=== PATIENT | male | born 1990 | race Caucasian/White ===

== ENCOUNTER 2017-12-07 22:54 | Emergency (ER) | payer OTHER, SELFPAY ==
[2017-12-08 00:18] LABS: ABG BASE EXCESS -1.6 (-2.0-2.0); ABG HCO3 22.4 MEQ/L (22.0-26.0); ABG O2 SATURATION 97.7 % (95.0-99.0); ABG PARTIAL PRESSURE CO2 36.2 mmHg (35.0-45.0); ABG PARTIAL PRESSURE O2 95.1 mmHg (75.0-100.0); ABG STANDARD HCO3 23.2 MEQ/L (22.0-26.0); ABG TOTAL CO2 23.5 MEQ/L (22.0-29.0)
[2017-12-08] MEDS: methylPREDNISolone INJ 125 MG/2 ML VIAL (J2930) IM (00:45)
== END 2017-12-08 01:04 | disposition home or self-care (01) ==
LOC: M ED 22:54
DX: J20.9 Acute bronchitis, unspecified (principal); F17.200 Nicotine dependence, unspecified, uncomplicated; F41.9 Anxiety disorder, unspecified; Z88.5 Allergy status to narcotic agent; Z88.8 Allergy status to other drugs, medicaments and biological substances
CPT/HCPCS: J2930

== ENCOUNTER 2018-08-10 20:53 | Emergency (ER) | payer MEDICAID, OTHER, SELFPAY ==
[~2018-08-10] VITALS: Ht 165.1 cm; Wt 90.0 kg
[~2018-08-10 20:53] MED LIST: CELE20TA PO; No Home Meds; PRED20TA PO; TRAZ-160 PO
[2018-08-10 20:56] VITALS: BP 131/70
[2018-08-10] MEDS ORDERED: ADACEL/BOOSTRIX VACCINE (DIPHTH/PERTUSS/ACELL/TETANUS)0.5ML SYR (90715) IM ONE (21:30)
--- NOTE | 2018-08-11 08:11 | REP ---
Left hand four views: There is subtle soft tissue injury of the thumb. There are tiny foreign bodies at the location of the soft tissue injury. There is are tiny metallic densities accompanied by soft tissue injury in t of the index finger lateral to the proximal phalange head. There is a metallic foreign body lateral to the base of the middle finger proximal phalange. No fracture or dislocation are identified. Impression: Soft tissue injury is not foreign bodies as described. No fracture or dislocation. Electronically Signed by Raymond Lovelace MD 08/11/2018 08:02 A
== END 2018-08-10 22:20 | disposition left against medical advice (07) ==
LOC: M ED 20:53
DX: Z53.21 Procedure and treatment not carried out due to patient leaving prior to being seen by health care provider (principal)

== ENCOUNTER 2018-08-11 05:16 | Emergency (ER) | payer SELFPAY ==
[~2018-08-11] VITALS: Ht 162.6 cm; Wt 86.4 kg
[2018-08-11] MEDS ORDERED: LIDOCAINE 1% SDV INJ 30 ML VIAL SC SCH (05:30)
[2018-08-11] MEDS ORDERED: LIDOCAINE 1% MDV 20ML VIAL SC ONE (05:30)
[2018-08-11] MEDS ORDERED: TETANUS/DIPHTHERIA TOX ADSORB ADULT 0.5ML SYR/VIAL (90714) IM ONE (05:30)
[2018-08-11] MEDS ORDERED: LIDOCAINE 1% MDV 20ML VIAL As Ordered ONE (05:35)
[2018-08-11 06:53] VITALS: BP 127/71
--- NOTE | 2018-08-11 07:39 | REP ---
Right shoulder three views : There is no fracture or dislocation. Mineralization and joint spaces are normal. There are no calcifications or foreign bodies. Impression: Negative right shoulder . Electronically Signed by Raymond Lovelace MD 08/11/2018 07:30 A
== END 2018-08-11 06:57 | disposition home or self-care (01) ==
LOC: M ED 05:16
DX: S61.012A Laceration without foreign body of left thumb without damage to nail, initial encounter (principal); S61.211A Laceration without foreign body of left index finger without damage to nail, initial encounter; S46.811A Strain of other muscles, fascia and tendons at shoulder and upper arm level, right arm, initial encounter; X50.1XXA Overexertion from prolonged static or awkward postures, initial encounter; Y92.89 Other specified places as the place of occurrence of the external cause; Y99.0 Civilian activity done for income or pay

== ENCOUNTER 2018-10-06 07:26 | Emergency (ER) | payer OTHER, SELFPAY ==
[~2018-10-06] VITALS: Ht 162.6 cm; Wt 86.4 kg
--- NOTE | 2018-10-06 08:18 | REP ---
Right shoulder three views : There is no fracture or dislocation. Mineralization and joint spaces are normal. There are no calcifications or foreign bodies. Impression: Negative right shoulder . Electronically Signed by Raymond Lovelace MD 10/06/2018 08:08 A
[2018-10-06] MEDS ORDERED: DICL75TA PO ×2 (08:26→08:50)
[2018-10-06 08:28] VITALS: BP 130/91
== END 2018-10-06 08:40 | disposition home or self-care (01) ==
LOC: M ED 07:26
DX: S46.001A Unspecified injury of muscle(s) and tendon(s) of the rotator cuff of right shoulder, initial encounter (principal); X50.0XXA Overexertion from strenuous movement or load, initial encounter; Y92.89 Other specified places as the place of occurrence of the external cause; Y99.0 Civilian activity done for income or pay; Z87.891 Personal history of nicotine dependence

== ENCOUNTER 2018-10-08 12:54 | Emergency (ER) | payer OTHER ==
[~2018-10-08] VITALS: Ht 162.6 cm; Wt 86.4 kg
[~2018-10-08 12:54] MED LIST changes: +DICL75TA PO
[2018-10-08 13:01] VITALS: BP 157/88
[2018-10-08] MEDS ORDERED: PERC5TAB12 PO (13:19)
== END 2018-10-08 13:29 | disposition home or self-care (01) ==
LOC: M ED 12:54
DX: M75.101 Unspecified rotator cuff tear or rupture of right shoulder, not specified as traumatic (principal); Z88.8 Allergy status to other drugs, medicaments and biological substances

== ENCOUNTER 2019-01-14 10:08 | Emergency (ER) | payer OTHER ==
[~2019-01-14] VITALS: Ht 162.6 cm; Wt 97.7 kg
[~2019-01-14 10:08] MED LIST changes: +PERC5TAB12 PO; -TRAZ-160 PO; +TRAZ-252 PO
[2019-01-14] MEDS ORDERED: TIZA4TAB4 (10:17)
[2019-01-14] MEDS ORDERED: ACET1TAB16 (10:17)
--- NOTE | 2019-01-14 13:22 | REP ---
CT study of the cervical spine without contrast: History: Neck pain and back pain. Comparison CT study is from July 03, 2015. Technique: Helical scanning is acquired and overlapping 2 mm high resolution axial images were generated and reviewed at bone and soft tissue window settings. Coronal and sagittal multiplanar re-formations images are generated. CT findings: There is no evidence of cervical spine element fracture. No skull base fracture is seen. Cervical vertebral body heights are preserved. Alignment is normal. There is some straightening again noted unchanged. Facet joints are normally aligned bilaterally at each cervical level on multiplanar re-formations images. There is no evidence of intraspinal or paraspinal hematoma. No extra vertebral abnormality is seen. Impression: Straightening again noted. Otherwise negative CT study of the cervical spine without contrast. No fracture seen. No change from July 03, 2015. Electronically Signed by Anthony Roy MD 01/14/2019 01:13 P
--- NOTE | 2019-01-14 13:42 | REP ---
Thoracic spine three views: There are no comparisons. Vertebral body heights, interspacing alignment are normal. Pedicles are unremarkable. Mineralization is normal. Impression: Negative thoracic spine. Electronically Signed by Raymond Lovelace MD 01/14/2019 01:34 P
[2019-01-14 13:53] VITALS: BP 155/80
== END 2019-01-14 13:56 | disposition home or self-care (01) ==
LOC: M ED 10:08
DX: M54.2 Cervicalgia (principal); M75.101 Unspecified rotator cuff tear or rupture of right shoulder, not specified as traumatic; G89.29 Other chronic pain; M79.621 Pain in right upper arm; Z79.899 Other long term (current) drug therapy; Z88.6 Allergy status to analgesic agent; Z88.5 Allergy status to narcotic agent

== ENCOUNTER 2020-09-01 21:50 | Emergency (ER) | payer OTHER, SELFPAY ==
[~2020-09-01] VITALS: Ht 162.6 cm; Wt 95.1 kg
[~2020-09-01 21:50] MED LIST changes: +ACET1TAB16; +TIZA4TAB4
[2020-09-01 21:51] VITALS: BP 154/72
== END 2020-09-01 23:25 | disposition left against medical advice (07) ==
LOC: M ED 21:50
DX: Z53.21 Procedure and treatment not carried out due to patient leaving prior to being seen by health care provider (principal)

== ENCOUNTER 2021-03-11 10:10 | Emergency (ER) | payer OTHER, SELFPAY ==
[~2021-03-11] VITALS: Ht 162.6 cm; Wt 95.0 kg
[2021-03-11 11:47] LABS: BASO # 0.1 10^3/uL (0.0-0.2); BASO % 0.9 % (0.0-1.0); EOS # 0.4 10^3/uL (0.0-0.5); HEMATOCRIT 49.8 % (42.0-52.0); HEMOGLOBIN 17.6 g/dl (13.5-17.5); LYMPH # 1.6 10^3/uL (1.5-5.0); LYMPH % 21.1 % (24.0-44.0); MEAN CORPUSCULAR HEMOGLOBIN 32.1 pg (27.0-33.0); MEAN CORPUSCULAR HGB CONC 35.3 g/dl (32.0-36.5); MEAN CORPUSCULAR VOLUME 90.7 fl (80.0-96.0); MONO # 0.5 10^3/uL (0.0-0.8); MONO % 6.2 % (2.0-8.0); NEUTROPHILS # 4.9 10^3/uL (1.5-8.5); NEUTROPHILS % 66.3 % (36.0-66.0); PLATELET COUNT, AUTOMATED 235 10^3/uL (150-450); RED BLOOD COUNT 5.49 10^6/uL (4.30-6.10); WHITE BLOOD COUNT 7.4 10^3/uL (4.0-10.0)
--- NOTE | 2021-03-11 12:05 | REP ---
INDICATION: dysphagia, voice changes, swallows chew. COMPARISON: CT cervical spine 01/14/2019. TECHNIQUE: CT soft tissues neck performed without IV contrast. Sagittal and coronal reconstruction images are performed. FINDINGS: The airway is widely patent with no narrowing or foreign body. The epiglottis is normal in size. The aryepiglottic folds are not thickened. The parotid and submandibular glands are symmetrical in appearance. There is no gross nodule of the thyroid. Thyroid is normal in size. No adenopathy is appreciated. There is mild mucosal thickening in the ethmoid, maxillary and left sphenoid sinuses. The visualized osseous structures are intact. IMPRESSION: Mild diffuse mucosal thickening in the paranasal sinuses. No gross airway abnormality. <Electronically signed by Raymond Serrano > 03/11/21 1203
[2021-03-11 12:07] LABS: MONO REFLEX EBV COMP NEGATIVE (NEGATIVE)
[2021-03-11 12:08] LABS: ERYTHROCYTE SEDIMENTATION RATE 1 mm/hr (0-15)
[2021-03-11 12:11] LABS: C REACTIVE PROTEIN QUANTITATIV < 0.30 MG/DL (0.00-0.30)
[2021-03-11] MEDS ORDERED: MAGIC MOUTHWASH *ED ONLY* 5ML ORAL SYRINGE SS ONE (12:15)
[2021-03-11] MEDS ORDERED: KETOROLAC 30 MG/ML 1ML VIAL IV ONE (12:15)
[2021-03-11] MEDS ORDERED: MAGICMW SSP (13:25)
[2021-03-11 13:32] VITALS: BP 139/98
[2021-03-14 15:12] LABS: EBV VIRAL CAPSID AG IgG >600.0 U/mL (0.0-17.9); EBV VIRAL CAPSID AG IgM <36.0 U/mL (0.0-35.9)
== END 2021-03-11 13:45 | disposition home or self-care (01) ==
LOC: M ED 10:10
DX: J02.9 Acute pharyngitis, unspecified (principal); F17.220 Nicotine dependence, chewing tobacco, uncomplicated; Z88.8 Allergy status to other drugs, medicaments and biological substances
CPT/HCPCS: 36415; 70490; 80047; 85025; 85652; 86140; 86308; 86664; 86665; 96374; 99284; J1885

== ENCOUNTER 2021-04-20 12:37 | Emergency (ER) | payer OTHER ==
[~2021-04-20] VITALS: Ht 172.7 cm; Wt 95.5 kg
[~2021-04-20 12:37] MED LIST changes: +MAGICMW SSP
[2021-04-20 12:38] VITALS: BP 136/88
--- OUTSIDE RECORDS SUMMARY | 2021-04-20 13:08 | CCD | Continuity of Care Document ---
Author Author Alex BANUELOS [facility] Organization Unknown Address [address] [place] [address] Phone [phone] Problems Description No Information Available Social History Type Date Description Comments Sex Unknown Tobacco Use Start: Unknown Current Smokeless Tobacco User, Uses 5 Times Daily ETOH Use Consumes 1-2 beers per day Recreational Drug Use Never Used Drugs Tobacco Use Start: Unknown End: Unknown Patient is a former smoker quit 2016 Smoking Status Reviewed: 02/13/21 Patient is a former smoker qu it 2016 Exercise Type/Frequency Exercises regularly Tattoo/Piercing Tattoo Sun Exposure Moderate amount of sun exposure Seat Belt/Car Seat Always uses seat belt Bike Helmet Never Smoke Alarms Yes Smoke Alarms Carbon Monoxide Detector: Yes Allergies, Adverse Reactions, Alerts Active Allergies Reaction Severity Comments Date Tramadol 02/26/2019 Naproxen 02/26/2019 Medications Description No Active Medications Immunizations CPT Code Status Date Vaccine Lot # [id number] Given 08/11/2018 Td Preservative Free For Use In Individuals 7 Yrs Or Older Vital Signs Date Vital Result Comment 02/13/2021 4:18pm BP Systolic 131 mmHg BP Diastolic 83 mmHg Heart Rate 92 /min Body Temperature 97.3 F Respiratory Rate 16 /min Height 64 inches 5'4" Weight 202.12 lb O2 % BldC Oximetry 96 % Peak Expiratory Flow Rate 491 Estimated Peak Flow Rate [place] Body Weight 130 lb BMI (Body Mass Index) 34.7 kg/m2 09/07/2019 11:20am BP Systolic 114 mmHg BP Diastolic 76 mmHg Heart Rate 66 /min Body Temperature 98.1 F Respiratory Rate 14 /min Height 64.0 inches 5'4" Weight 213.38 lb Peak Expiratory Flow Rate 495 Estimated Peak Flow Rate [place] Body Weight 130 lb BMI (Body Mass Index) 36.6 kg/m2 Results Description No Information Available Procedures Date Code Description Status 02/13/2021 12953 Preventive Medicine 18-39 Years, Est. Completed Medical Devices Description No Information Available Encounters Type Date Location Provider Dx Diagnosis Office Visit 02/13/2021 4:15p Main Office Maegan Banuelos FNP Z00.0 0 Encntr for general adult medical exam w/o abnormal findings H91.93 Unspecified hearing loss, bi lateral Assessments Date Code Description Provider 02/13/2021 Z00.00 Encounter for genera l adult medical examination without abnormal findings Maegan Banuelos FNP 02/13/2021 H91.93 Unspecified hearing loss, bilate ral Maegan Banuelos FNP Plan of Treatment 02/13/2021 - Maegan Banuelos FNP* Z00.00 Encounter for general adult medical examination without abnormal findings* Comments:* Health maintenance up to date. Overall doing well. SLADE/PHQ 9/CAGE questionnaire reviewed. Discussed healthy lifestyle choices. * Follow up:* annually * H91.93 Unspecified hearing loss, bilateral* Comments:* refer to audiology * All * New Medication:* No Active Medications - Functional Status Functional Condition Comment Date Status Independent with all ADL's Activ e Glasses Active Independent with all IADL's Acti ve Mental Status Mental Condition Comment Date Status None Active Referrals Description No Information Available
--- OUTSIDE RECORDS SUMMARY | 2021-04-20 13:08 | CCD | Continuity of Care Document ---
Author Author Alex BANUELOS [facility] Organization Unknown Address [address] [place] [address] Phone [phone] Problems Description No Information Available Social History [...] CPT Code Status Date Vaccine Lot # [id number] Given 08/11/2018 Td Preservative Free For Use In Individuals 7 Yrs Or Older Vital Signs Date Vital Result Comment 02/13/2021 4:18pm BP Systolic 131 mmHg BP Diastolic 83 mmHg Heart Rate 92 /min Body Temperature 97.3 F Respiratory Rate 16 /min Height 64 inches 5'4" Weight 202.12 lb O2 % BldC Oximetry 96 % Peak Expiratory Flow Rate 491 Estimated Peak Flow Rate [place] Body Weight 130 lb BMI (Body Mass Index) 34.7 kg/m2 09/07/2019 11:20am BP Systolic 114 mmHg BP Diastolic 76 mmHg Heart Rate 66 /min Body Temperature 98.1 F Respiratory Rate 14 /min Height 64.0 inches 5'4" Weight 213.38 lb Peak Expiratory Flow Rate 495 Estimated Peak Flow Rate [place] Body Weight 130 lb BMI (Body Mass Index) 36.6 kg/m2 Results Description No Information Available Procedures Date Code Description Status 02/13/2021 50175 Preventive Medicine 18-39 Years, Est. Completed Medical [...]
--- OUTSIDE RECORDS SUMMARY | 2021-04-20 13:08 | CCD | Continuity of Care Document ---
Author Author Alex BANUELOS [facility] Organization Unknown Address [address] [place] [address] Phone [phone] Care Team Providers Care People Greeter Name Role Phone [facility] - [facility] [phone] [facility] Problems Description No Information Available Social History Type Date Description Comments Sex Unknown Tobacco Use Start: Unknown Current Smokeless Tobacco User, Uses 5 Times Daily ETOH Use Consumes 1-2 beers per day Recreational Drug Use Never Used Drugs Tobacco Use Start: Unknown End: Unknown Patient is a former smoker quit 2016 Smoking Status Reviewed: 03/15/21 Patient is a former smoker qu it 2017 Exercise Type/Frequency Exercises regularly Tattoo/Piercing Tattoo Sun Exposure Moderate amount of sun exposure Seat Belt/Car Seat Always uses seat belt Bike Helmet Never Smoke Alarms Yes Smoke Alarms Carbon Monoxide Detector: Yes Allergies, Adverse Reactions, Alerts Active Allergies Criticality Reaction | Severity Comments Date Tramadol Unable to assess criticality 02/26/2019 Naproxen Unable to assess criticality 02/26/2019 Medications Active Medications SIG Qnty Indications Ordering Provide r Date Cefdinir 300mg Capsules 1 by mouth twice a day 20caps J02.9 Maegan Banuelos FNP 03/15/2021 History Medications No Active Medications Bhupinder Banuelos FNP 02/13/2021 - 03/15/2021 Immunizations CPT Code Status Date Vaccine Lot # [id number] Given 08/11/2018 Td Preservative Free For Use In Individuals 7 Yrs Or Older Vital Signs Date Vital Result Comment 03/15/2021 2:24pm BP Systolic 130 mmHg BP Diastolic 89 mmHg Heart Rate 76 /min Body Temperature 97.8 F Respiratory Rate 16 /min Height 64 inches 5'4" Weight 211.31 lb O2 % BldC Oximetry 98 % Peak Expiratory Flow Rate 491 Estimated Peak Flow Rate [place] Body Weight 130 lb BMI (Body Mass Index) 36.3 kg/m2 02/13/2021 4:18pm BP Systolic 131 mmHg BP Diastolic 83 mmHg Heart Rate 92 /min Body Temperature 97.3 F Respiratory Rate 16 /min Height 64 inches 5'4" Weight 202.12 lb O2 % BldC Oximetry 96 % Peak Expiratory Flow Rate 491 Estimated Peak Flow Rate [place] Body Weight 130 lb BMI (Body Mass Index) 34.7 kg/m2 Results Description No Information Available Procedures Date Code Description Status 03/15/2021 98312 Office/Outpatient Established Lo w MDM 20-29 Min Completed 02/13/2021 43522 Preventive Medicine 18-39 Years, Est. Completed Medical Devices Description No Information Available Encounters Type Date Location Provider Dx Diagnosis Office Visit 03/15/2021 2:45p Main Office Maegan Banuelos FNP J02.9 Acute pharyngitis, unspecified Office Visit 02/13/2021 4:15p Main Office Maegan Banuelos FNP Z00.0 0 Encntr for general adult medical exam w/o abnormal findings H91.93 Unspecified hearing loss, bi lateral Assessments Date Code Description Provider 03/15/2021 J02.9 Acute pharyngitis, unspecified P Maegan roach FNP 02/13/2021 Z00.00 Encounter for genera l adult medical examination without abnormal findings Maegan Banuelos FNP 02/13/2021 H91.93 Unspecified hearing loss, bilate ral Maegan Banuelos FNP Plan of Treatment 03/15/2021 - Maegan Banuelos FNP* J02.9 Acute pharyngitis, unspecified* New Medication:* Cefdinir 300 mg - 1 by mouth twice a day * Comments:* likely an infectious process but will also refer to ENT for evaluation per patient's request and risk factors including family history and use of chewing tobacco * Referral:* [facility] * Recommendations:* rest, increase fluids, warm salt water gargle, Tylenol for discomfort, throat lozenges Functional Status Functional Condition Comment Date Status Independent with all ADL's Activ e Glasses Active Independent with all IADL's Acti ve Mental Status Mental Condition Comment Date Status None Active Referrals Refer to Reason for Referral Status Appt Date [facility] Please evaluate patient for continued sore throats, family hx of throat cancer, chewing tobacco use. Thank you. Sent [address] [facility], [address] [facility] [phone] [facility] Please evaluate for bilateral hearing lo ss. Thank you. Scheduled 03/20/2021 [address] [place] [address] [phone]
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
--- OUTSIDE RECORDS SUMMARY | 2021-04-20 15:02 | CCD | Continuity of Care Document ---
Author Author [facility] Organization Unknown Address [address] [place] [address] Phone [phone] Care Team Providers Care Sales Expert Name Role Phone [facility] - Hearing Aid Equipment AUTM [phone] Problems Description No Information Available Social History [...] CPT Code Status Date Vaccine Lot # [id number] Given 08/11/2018 Td Preservative Free For Use In Individuals 7 Yrs Or Older Vital Signs Date Vital Result Comment 03/15/2021 2:24pm BP Systolic 130 mmHg BP Diastolic 89 mmHg Heart Rate 76 /min Body Temperature 97.8 F Respiratory Rate 16 /min Height 64 inches 5'4" Weight 211.31 lb O2 % BldC Oximetry 98 % Peak Expiratory Flow Rate 491 Estimated Peak Flow Rate [place] Body Weight 130 lb BMI (Body Mass Index) 36.3 kg/m2 02/13/2021 4:18pm BP Systolic 131 mmHg BP Diastolic 83 mmHg Heart Rate 92 /min Body Temperature 97.3 F Respiratory Rate 16 /min Height 64 inches 5'4" Weight 202.12 lb O2 % BldC Oximetry 96 % Peak Expiratory Flow Rate 491 Estimated Peak Flow Rate [place] Body Weight 130 lb BMI (Body Mass Index) 34.7 kg/m2 Results Description No Information Available Procedures Date Code Description Status 02/13/2021 00491 Preventive Medicine 18-39 Years, Est. Completed Medical [...] by mouth twice a day * Comments:* will also refer to ENT for evaluation per patient's request * Recommendations:* rest, increase fluids, warm salt water gargle, Tylenol for discomfort, throat lozenges Functional Status Functional Condition Comment Date Status Independent with all ADL's Activ e Glasses Active Independent with all IADL's Acti ve Mental Status Mental Condition Comment Date Status None Active Referrals Refer to Reason for Referral Status Appt Date [facility] Please evaluate for bilateral hearing lo ss. Thank you. Scheduled 03/20/2021 [id number] [place] [id number] [phone]
== END 2021-04-20 15:12 | disposition left against medical advice (07) ==
LOC: M ED 12:37
DX: Z53.21 Procedure and treatment not carried out due to patient leaving prior to being seen by health care provider (principal)

== ENCOUNTER 2021-04-21 08:08 | Inpatient (IN) | payer OTHER ==
[~2021-04-21] VITALS: Ht 162.6 cm; Wt 91.0 kg
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
[2021-04-21] MEDS ORDERED: methylPREDNISolone 125MG 2ML VIAL IV ONE (09:00)
[2021-04-21] MEDS ORDERED: ACETAMINOPHEN *IV* 1,000 MG in IV 1 EA IV ONE (09:05)
[2021-04-21] MEDS ORDERED: NS 1,000 ML IV ONE (09:05)
[2021-04-21 09:40] LABS: BASO # 0.1 10^3/uL (0.0-0.2); BASO % 0.7 % (0.0-1.0); EOS # 0.6 10^3/uL (0.0-0.5); EOS % 5.4 % (0.0-3.0); HEMATOCRIT 49.3 % (42.0-52.0); LYMPH # 1.6 10^3/uL (1.5-5.0); LYMPH % 14.7 % (24.0-44.0); MEAN CORPUSCULAR HEMOGLOBIN 31.7 pg (27.0-33.0); MEAN CORPUSCULAR HGB CONC 34.5 g/dl (32.0-36.5); MEAN CORPUSCULAR VOLUME 91.8 fl (80.0-96.0); MONO # 0.7 10^3/uL (0.0-0.8); MONO % 6.6 % (2.0-8.0); NEUTROPHILS # 7.7 10^3/uL (1.5-8.5); NEUTROPHILS % 72.2 % (36.0-66.0); PLATELET COUNT, AUTOMATED 243 10^3/uL (150-450); RED BLOOD COUNT 5.37 10^6/uL (4.30-6.10); WHITE BLOOD COUNT 10.7 10^3/uL (4.0-10.0)
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
[2021-04-21 10:05] LABS: ALT/SGPT 98 U/L (12-78); BILIRUBIN,DIRECT 0.2 MG/DL (0.0-0.2); C REACTIVE PROTEIN QUANTITATIV 1.41 MG/DL (0.00-0.30); LIPASE 68 U/L (73-393); TOTAL PROTEIN 7.1 GM/DL (6.4-8.2)
[2021-04-21 10:06] LABS: MONO SCRN NEGATIVE (NEGATIVE)
[2021-04-21 10:37] LABS: ERYTHROCYTE SEDIMENTATION RATE 1 mm/hr (0-15)
[2021-04-21] MEDS ORDERED: ISOVUE-370 76% 100ML VIAL As Ordered ONE (11:36)
--- NOTE | 2021-04-21 12:07 | REPVR ---
PROCEDURE INFORMATION: Exam: CT Neck With Contrast Exam date and time: 04/21/2021 11:47 AM Age: 31 years old Clinical indication: Dysphagia / difficulty swallowing; Prior surgery; Additional info: Dyphagia TECHNIQUE: Imaging protocol: Computed tomography images of the neck with contrast. Radiation optimization: All CT scans at this facility use at least one of these dose optimization techniques: automated exposure control; mA and/or kV adjustment per patient size (includes targeted exams where dose is matched to clinical indication); or iterative reconstruction. Contrast material: ISOVUE 370; Contrast volume: 75 ml; Contrast route: INTRAVENOUS (IV); COMPARISON: CT Neck without contrast 03/11/2021 11:04 AM FINDINGS: Brain: Mild mass effect upon the airway from the right mucosal lesion. Mastoid air cells: The mastoids are well aerated. Paranasal sinuses: Paranasal sinus disease most pronounced in the ethmoids as before. No air-fluid levels. Nasopharynx: Unremarkable. Dental: There is a carious right mandibular molar. No significant periapical lucencies in the maxilla or mandible. No cortical destruction here. Oropharynx: Increasing soft tissue prominence of the lingual tonsil and parapharyngeal space on the right. I believe there is a developing peritonsillar abscess measuring 18 x 11 mm. Hypopharynx: Unremarkable. Larynx: The epiglottis is sharp. Soft tissue edema is seen extending to the region of the tongue base and floor of mouth on the right. Additional hypodense lesion could be present in the intrinsic tongue on axial series 201, image 39 measuring 16 x 9 mm. This could be due 2nd developing collection. Retropharyngeal space: Unremarkable. Submandibular/Parotid glands: Normal. Glands are normal in size. Thyroid: Homogeneous thyroid. Lymph nodes: Small neck nodes are likely reactive right greater than left. . Trachea: Visualized trachea is unremarkable. Lungs: Grossly clear lungs. Esophagus: Mildly patulous esophagus. Bones/joints: No acute fracture. Loss of the lordosis suggests spasm. Vasculature: No venous thrombus. No significant carotid vascular calcifications. Soft tissues: No subcutaneous lesions. IMPRESSION: 1. Findings worrisome for developing peritonsillar abscess on the right with mild mass effect upon the airway. 2. Question new hypodense lesion in the intrinsic tongue on the right with artifact from adjacent dental hardware. 3. Dental disease. 4. No confluent lymphadenopathy. Electronically signed by: Cali Augustine On 04/21/2021 12:07:46 PM
[2021-04-21] MEDS ORDERED: AMPICILLIN SOD/SULBACTAM SOD 3 GM in D5W MINI-BAG PLUS 100 ML IV ONE (12:25)
[2021-04-21 12:35] LABS: RSV AMPLIFICATION NEGATIVE (NEGATIVE)
[2021-04-21] MEDS ORDERED: MORPHINE 4 MG/ML 1ML VIAL/SYRINGE (J2270) IV ONE (13:00)
[2021-04-21] MEDS ORDERED: ONDANSETRON 4MG/2ML VIAL IV ONE (13:00)
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
[2021-04-21] MEDS ORDERED: ACETAMINOPHEN TAB 650MG DOSE (2X325MG) PO PRN (14:25)
[2021-04-21] MEDS ORDERED: ONDANSETRON 4MG/2ML VIAL IV PRN (14:25)
[2021-04-21] MEDS ORDERED: CHLORASEPTIC SPRAY MT PRN (14:25)
[2021-04-21] MEDS ORDERED: HOME MED LIST COMPLETE! XX SCH (14:45)
[2021-04-21] MEDS ORDERED: LORazepam 2 MG TAB PO PRN (15:20)
--- NOTE | 2021-04-21 15:27 | HPEPDOC ---
General Date of Admission Apr 21, 2021 at 13:45 Date of Service: Apr 21, 2021 Chief Complaint The patient is a 31-year-old male admitted with a reason for visit of Peritonsillar Abscess, Uvulitis. History of Present Illness Mr. Hernandez is a 29-year-old male with history of smoking who presents with throat pain with difficulty swallowing solids. He denies any sick contacts, recent travel, or recent hospitalizations. The sore throat started about 3 weeks ago. He describes the pain as annoying and throbbing. It progressively gotten worse the past 3 weeks. This morning he woke up and he cannot swallow solid. He can swallow a little of liquids. He denies any fever or chills, chest pain, dyspnea, abdominal pain, diarrhea, or dysuria. He came into the ED for evaluation. His uvula was swollen and was taken to the right side of his throat. CT neck with contrast demonstrates developing peritonsillar abscess on the right. There is mild mass-effect upon the airway. ED provider contacted ENT, Dr. Carey. Recommended IV antibiotics and monitor the patient overnight. If his symptoms improved tomorrow, he would not need surgery. His symptoms worsen or stays the same, he may need surgery. He will be put on a clear liquid diet and switch to n.p.o. at midnight. Patient will be admitted for peritonsillar abscess. Home Medications No Active Prescriptions or Reported Meds Allergies Coded Allergies: naproxen (Verified Allergy, Unknown, 10/06/18) tramadol (Verified Adverse Reaction, Unknown, VOMITS, 10/06/18) Past Medical History Medical History 1. Nicotine use disorder 2. Alcohol use disorder Surgical History 1. Tonsillectomy and adenoidectomy 2. Left rotator cuff and biceps repair Family History Father: History of throat cancer and kidney cancer Mother: Does not know mother's past medical history Social History * Smoker: former Smoker, other (Now chews tobacco) Alcohol: occationally (About a 6 pack a day) Drugs: marijuana A-FIB/CHADSVASC A-FIB History Current/History of A-Fib/PAF?: No Review of Systems Constitutional: Denies: Chills, Fever Eyes: Denies: Vision change ENT: Reports: Sore Throat, Other Symptoms (trouble swallowing solids) Skin: Denies: Rash Pulmonary: Denies: Dyspnea, Cough Cardiovascular: Denies: Chest Pain Gastrointestinal: Denies: Abdominal Pain Genitourinary: Denies: Dysuria Hematologic: Denies: Bruising Neurological: Denies: Numbness Psych: Denies: Anxiety, Depression Physical Examination General Exam: Positive: Alert, Cooperative Eye Exam: Positive: EOMI; Negative: Sclera icteric ENT Exam: Positive: Other ENT (Uvula swelling and touching right side) Chest Exam: Positive: Clear to auscultation Heart Exam: Positive: Rate Normal, Regular Rhythm Abdomen Exam: Positive: Normal bowel sounds, Soft; Negative: Tenderness Extremity Exam: Negative: Edema Neuro Exam: Positive: Normal Speech, Cranial Nerves 3-12 NL Psych Exam: Positive: Mental status NL, Mood NL Vital Signs Vital Signs Date Time Temp Pulse Resp B/P (MAP) Pulse Ox O2 Delivery O2 Flow Rate FiO2 04/21/21 14:08 18 04/21/21 14:07 97.2 78 95 04/21/21 08:09 Room Air Laboratory Data Labs 24H Laboratory Tests 2 04/21/21 08:52: POC Group A Strep Rapid Screen NEGATIVE 04/21/21 09:27: Immature Granulocyte % (Auto) 0.4, Neutrophils (%) (Auto) 72.2H, Lymphocytes (%) (Auto) 14.7L, Monocytes (%) (Auto) 6.6, Eosinophils (%) (Auto) 5.4H, Basophils (%) (Auto) 0.7, Neutrophils # (Auto) 7.7, Lymphocytes # (Auto) 1.6, Monocytes # (Auto) 0.7, Eosinophils # (Auto) 0.6H, Basophils # (Auto) 0.1, Nucleated Red Blood Cells % (auto) 0.0, Erythrocyte Sedimentation Rate 1, Total Bilirubin 1.0, Direct Bilirubin 0.2, Aspartate Amino Transf (AST/SGOT) 30, Alanine Aminotransferase (ALT/SGPT) 98H, Alkaline Phosphatase 77, C-Reactive Protein, Quantitative 1.41H, Total Protein 7.1, Albumin 4.0, Albumin/Globulin Ratio 1.3, Lipase 68L, Monoscreen NEGATIVE 04/21/21 09:46: POC Glucose (Misc Panel) 109H, POC Sodium (Misc Panel) 141, POC Potassium (Misc Panel) 4.1, POC Chloride (Misc Panel) 103, POC Total CO2 (Misc Panel) 24.0, POC Blood Urea Nitrogen (Misc Panel 11, POC Ionized Calcium (Misc Panel) 4.6, POC Creatinine (Misc Panel) 0.8, POC Hematocrit (Misc Panel) 50.0 04/21/21 11:29: Coronavirus (COVID-19)(PCR) NEGATIVE, Influenza Type A (RT-PCR) NEGATIVE, Influenza Type B (RT-PCR) NEGATIVE, Respiratory Syncytial Virus (PCR) NEGATIVE CBC/BMP Laboratory Tests 04/21/21 09:27 Microbiology Microbiology 04/21/21 Group A Streptococcus Screen (GALDINO), Received Pending Assessment/Plan Mr. Hernandez is a 29-year-old male with history of smoking who presents with throat pain with difficulty swallowing solids. He was found to have right peritonsillar abscess and uveitis. ENT consulted. Recommending IV antibiotics and monitoring overnight. If patient does not improve, can consider surgery. We will keep patient on clear liquid diet and switch to n.p.o. after midnight. Plan / VTE VTE Prophylaxis Ordered?: Yes Plan Plan 1. Peritonsillar abscess and uveitis Rapid strep negative and mono screen negative ENT consulted, recommendations appreciated IV Unasyn day 1 Clear liquid diet now and n.p.o. after midnight If no improvement tomorrow morning, can consider surgery 2. Alcohol use disorder Patient drinks about a sixpack a beer a day CIWA protocol Thiamine, folic acid, and multivitamin 3. Tobacco use disorder Patient recently quit smoking and now is chewing tobacco/nicotine 4. DVT prophylaxis Due to planned procedure, SCDs and teds Disposition: Pending clinical improvement and ENT evaluation TERENCE ROMAN DO Apr 21, 2021 14:49
--- NOTE | 2021-04-21 15:34 | CR.PDOC ---
General Date of Consultation: Apr 21, 2021 Referring Provider: TERENCE ROMAN DO Attending Physician: Leonard Carey MD Consultation REASON FOR CONSULTATION/CHIEF COMPLAINT: Right cellulitis versus abscess . HISTORY OF PRESENT ILLNESS: Alex is a 31-year-old gentleman who was complained of a 2-week history of progressive right sore throat. 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 He woke this morning and felt like his throat was closing off. He came to the ER. He has been afebrile swallowing has been sore but he is able to take p.o. Lab tests showed white count of 10. CT scan was done that showed cellulitis versus early abscess right peritonsillar area. ALLERGIES: Please see below. HOME MEDICATIONS: Please see below. PAST MEDICAL HISTORY: 1. None. PAST SURGICAL HISTORY: 1. 2. FAMILY HISTORY: Father: Mother: Siblings: Children: Hereditary Diseases: Unexpected deaths due to medical reasons: SOCIAL HISTORY: Marital status and/or living arrangements: Children: Employment: Tobacco use: ETOH: Illicit drug use: IV drug use: Other relevant social factors: REVIEW OF SYSTEMS: CONSTITUTIONAL: . HEENT: . CARDIOVASCULAR: . RESPIRATORY: . GENITOURINARY: . MUSCULOSKELETAL: . GASTROINTESTINAL: . SKIN: . NEUROLOGICAL: . PSYCHIATRIC: . ENDOCRINE: . HEMATOLOGIC/LYMPHATIC: . ALLERGIC/IMMUNOLOGIC: . PHYSICAL EXAMINATION: VITAL SIGNS: Please see below. GENERAL APPEARANCE: He was alert and oriented in no obvious distress.. HEENT: Examination of face and scalp was within normal limits. Examination the ears were clear examination external nose was normal intraoral examination revealed normal floor mouth tongue and posterior pharyngeal wall. There was erythema over the right tonsil pillar tonsil was 2+. There was a mucous retention cyst on his tonsil. Left side was clear palpation of the neck revealed some tender adenopathy in the right jugulodigastric area otherwise clear.. RESPIRATORY: . CARDIOVASCULAR: . ABDOMEN: . EXTREMITIES: . NEUROLOGICAL: . PSYCHIATRIC: . LABORATORY DATA: Please see below. ASSESSMENT/PLAN: 1. I think he has a peritonsillar cellulitis which will most likely be treated adequately with IV antibiotics. We recommended Unasyn. He has had some steroids in the ER and is already feeling a little bit better. I will follow him through the weekend to ensure that he continues to improve. Out of an ab undance of caution we will have him stay n.p.o. after midnight and we can evaluate this in the morning.. Vital Signs/I&O Vital Signs Date Time Temp Pulse Resp B/P (MAP) Pulse Ox O2 Delivery O2 Flow Rate FiO2 04/21/21 14:28 04/21/21 14:08 18 04/21/21 14:07 97.2 78 95 04/21/21 08:09 Room Air Laboratory Data Labs 24H Laboratory Tests 2 04/21/21 08:52: POC Group A Strep Rapid Screen NEGATIVE 04/21/21 09:27: Immature Granulocyte % (Auto) 0.4, Neutrophils (%) (Auto) 72.2H, Lymphocytes (%) (Auto) 14.7L, Monocytes (%) (Auto) 6.6, Eosinophils (%) (Auto) 5.4H, Basophils (%) (Auto) 0.7, Neutrophils # (Auto) 7.7, Lymphocytes # (Auto) 1.6, Monocytes # (Auto) 0.7, Eosinophils # (Auto) 0.6H, Basophils # (Auto) 0.1, Nucleated Red Blood Cells % (auto) 0.0, Erythrocyte Sedimentation Rate 1, Total Bilirubin 1.0, Direct Bilirubin 0.2, Aspartate Amino Transf (AST/SGOT) 30, Alanine Aminotransferase (ALT/SGPT) 98H, Alkaline Phosphatase 77, C-Reactive Protein, Quantitative 1.41H, Total Protein 7.1, Albumin 4.0, Albumin/Globulin Ratio 1.3, Lipase 68L, Monoscreen NEGATIVE 04/21/21 09:46: POC Glucose (Misc Panel) 109H, POC Sodium (Misc Panel) 141, POC Potassium (Misc Panel) 4.1, POC Chloride (Misc Panel) 103, POC Total CO2 (Misc Panel) 24.0, POC Blood Urea Nitrogen (Misc Panel 11, POC Ionized Calcium (Misc Panel) 4.6, POC Creatinine (Misc Panel) 0.8, POC Hematocrit (Misc Panel) 50.0 04/21/21 11:29: Coronavirus (COVID-19)(PCR) NEGATIVE, Influenza Type A (RT-PCR) NEGATIVE, Influenza Type B (RT-PCR) NEGATIVE, Respiratory Syncytial Virus (PCR) NEGATIVE CBC/BMP Laboratory Tests 04/21/21 09:27 Microbiology Microbiology 04/21/21 Group A Streptococcus Screen (GALDINO), Received Pending Allergies Coded Allergies: naproxen (Verified Allergy, Unknown, 10/06/18) tramadol (Verified Adverse Reaction, Unknown, VOMITS, 10/06/18) Home Medications No Active Prescriptions or Reported Meds Leonard Carey MD Apr 21, 2021 15:34
[2021-04-21 16:00] VITALS: BP 122/72
[2021-04-21] MEDS: PERCOCET 5MG/325MG TAB PO PRN (16:34)
[2021-04-21] MEDS: AMPICILLIN SOD/SULBACTAM SOD 3 GM in D5W MINI-BAG PLUS 100 ML IV SCH ×2 (18:57→23:21)
[2021-04-21 19:54] VITALS: BP 104/53
[2021-04-21] MEDS: THIAMINE 100 MG TAB PO SCH (20:23)
[2021-04-21] MEDS: MORPHINE 2 MG/ML 1ML VIAL (J2270) IV PRN (20:24)
[2021-04-21 23:00] VITALS: BP 105/52
[2021-04-22] MEDS: AMPICILLIN SOD/SULBACTAM SOD 3 GM in D5W MINI-BAG PLUS 100 ML IV SCH ×3 (05:55→17:33)
[2021-04-22] MEDS: PERCOCET 5MG/325MG TAB PO PRN ×2 (05:56→20:10)
[2021-04-22 06:00] VITALS: BP 102/56
[2021-04-22 06:31] LABS: HEMATOCRIT 46.1 % (42.0-52.0); MEAN CORPUSCULAR HEMOGLOBIN 31.7 pg (27.0-33.0); MEAN CORPUSCULAR HGB CONC 34.7 g/dl (32.0-36.5); MEAN CORPUSCULAR VOLUME 91.3 fl (80.0-96.0); PLATELET COUNT, AUTOMATED 229 10^3/uL (150-450); RED BLOOD COUNT 5.05 10^6/uL (4.30-6.10); WHITE BLOOD COUNT 15.4 10^3/uL (4.0-10.0)
[2021-04-22 06:49] LABS: BLOOD UREA NITROGEN 10 MG/DL (7-18); CALCIUM LEVEL 8.3 MG/DL (8.5-10.1); CARBON DIOXIDE LEVEL 27 MEQ/L (21-32); CHLORIDE LEVEL 108 MEQ/L (98-107); CREATININE FOR GFR 0.76 MG/DL (0.70-1.30); GLOMERULAR FILTRATION RATE > 60.0 (>60); GLUCOSE, FASTING 106 MG/DL (70-100); POTASSIUM SERUM 3.8 MEQ/L (3.5-5.1); SODIUM LEVEL 142 MEQ/L (136-145)
--- NOTE | 2021-04-22 08:37 | IPNPDOC ---
Subjective Date Seen The patient was seen on 04/22/21. Subjective Chief Complaint/HPI Peritonsillar cellulitis/early abscess Events since last encounter Alex is a 31-year-old gentleman who has a 2-week history of increasing sore throat. He was seen yesterday in the ER and day peritonsillar cellulitis/early abscess was noted. On exam he had swelling of the right tonsil area and uvula. He was placed on Unasyn and kept n.p.o. overnight. This morning he reports the swelling is decreased the throat is still sore but slightly improved. White count is elevated to 15 today yesterday was 10 most likely secondary to steroids Objective Physical Examination General Exam: Positive: Alert, Cooperative Eye Exam: Positive: EOMI; Negative: Sclera icteric ENT Exam: Positive: Other ENT (Uvula swelling and touching right side) Chest Exam: Positive: Clear to auscultation Heart Exam: Positive: Rate Normal, Regular Rhythm Abdomen Exam: Positive: Normal bowel sounds, Soft; Negative: Tenderness Extremity Exam: Negative: Edema Neuro Exam: Positive: Normal Speech, Cranial Nerves 3-12 NL Psych Exam: Positive: Mental status NL, Mood NL Other physical findings Examination of the oropharynx shows decreased swelling of the right tonsil uvula is back to normal lateral pharyngeal wall looks fine. Continues to have some mild tender adenopathy in the neck. Assessment /Plan Assessment Clinically seems improved on IV antibiotics. Organ allow him to have p.o. fluids and food today. I would like him to be n.p.o. again after midnight. Plan/VTE VTE Prophylaxis Ordered?: Yes VS, I&O, 24H, [place] Vital Signs/I&O Vital Signs Date Time Temp Pulse Resp B/P (MAP) Pulse Ox O2 Delivery O2 Flow Rate FiO2 04/22/21 06:26 16 Room Air 04/22/21 06:00 98.2 63 102/56 (71) 98 I&O- Last 24 Hours up to 6 AM 04/22/21 05:59 Intake Total 2890 ml Output Total 200 ml Balance 2690 ml Laboratory Data 24H LABS Laboratory Tests 2 04/21/21 08:52: POC Group A Strep Rapid Screen NEGATIVE 04/21/21 09:27: Immature Granulocyte % (Auto) 0.4, Neutrophils (%) (Auto) 72.2H, Lymphocytes (%) (Auto) 14.7L, Monocytes (%) (Auto) 6.6, Eosinophils (%) (Auto) 5.4H, Basophils (%) (Auto) 0.7, Neutrophils # (Auto) 7.7, Lymphocytes # (Auto) 1.6, Monocytes # (Auto) 0.7, Eosinophils # (Auto) 0.6H, Basophils # (Auto) 0.1, Nucleated Red Blood Cells % (auto) 0.0, Erythrocyte Sedimentation Rate 1, Total Bilirubin 1.0, Direct Bilirubin 0.2, Aspartate Amino Transf (AST/SGOT) 30, Alanine Aminotransferase (ALT/SGPT) 98H, Alkaline Phosphatase 77, C-Reactive Protein, Quantitative 1.41H, Total Protein 7.1, Albumin 4.0, Albumin/Globulin Ratio 1.3, Lipase 68L, Monoscreen NEGATIVE 04/21/21 09:46: POC Glucose (Misc Panel) 109H, POC Sodium (Misc Panel) 141, POC Potassium (Misc Panel) 4.1, POC Chloride (Misc Panel) 103, POC Total CO2 (Misc Panel) 24.0, POC Blood Urea Nitrogen (Misc Panel 11, POC Ionized Calcium (Misc Panel) 4.6, POC Creatinine (Misc Panel) 0.8, POC Hematocrit (Misc Panel) 50.0 04/21/21 11:29: Coronavirus (COVID-19)(PCR) NEGATIVE, Influenza Type A (RT-PCR) NEGATIVE, Influenza Type B (RT-PCR) NEGATIVE, Respiratory Syncytial Virus (PCR) NEGATIVE 04/22/21 05:56: Nucleated Red Blood Cells % (auto) 0.0, Anion Gap 7L, Glomerular Filtration Rate > 60.0, Calcium Level 8.3L CBC/BMP Laboratory Tests 04/21/21 09:27 04/22/21 05:56 Microbiology Microbiology 04/21/21 Group A Streptococcus Screen (GALDINO) - Final, Complete Leonard Carey MD Apr 22, 2021 08:36
[2021-04-22] MEDS: THIAMINE 100 MG TAB PO SCH ×2 (09:44→20:10)
[2021-04-22] MEDS: FOLIC ACID 1 MG TAB PO SCH (09:44)
[2021-04-22] MEDS: MULTIVITAMINS/MINERALS THERAP 1 TAB PO SCH (09:44)
[2021-04-22] MEDS: MORPHINE 2 MG/ML 1ML VIAL (J2270) IV PRN ×2 (09:57→16:45)
[2021-04-22] MEDS: NICOTINE 21MG/24HR 1 EA TRANSDERMAL TD SCH (12:18)
[2021-04-22 14:00] VITALS: BP_SYST 120; BP_SYST 122; BP_DIAS 69
--- NOTE | 2021-04-22 20:34 | IPNPDOC ---
Subjective Date Seen The patient was seen on 04/22/21. Subjective Chief Complaint/HPI Mr. Hernandez is a 29-year-old male with history of smoking who presents with throat pain with difficulty swallowing solids. Patient did well overnight. In the morning, his throat was feeling slightly better. He denies any chest pain or dyspnea. He felt that he could try a regular diet. We will continue with another day of antibiotics, and keep n.p.o. after midnight Objective Physical Examination General Exam: Positive: Alert, Cooperative Eye Exam: Positive: EOMI; Negative: Sclera icteric Chest Exam: Positive: Clear to auscultation Heart Exam: Positive: Rate Normal, Regular Rhythm Abdomen Exam: Positive: Normal bowel sounds, Soft; Negative: Tenderness Extremity Exam: Negative: Edema Neuro Exam: Positive: Normal Speech, Cranial Nerves 3-12 NL Psych Exam: Positive: Mental status NL, Mood NL Assessment /Plan Assessment Mr. Hernandez is a 29-year-old male with history of smoking who presents with throat pain with difficulty swallowing solids. He was found to have right peritonsillar abscess and uveitis. ENT consulted. Patient will most likely not need surgery. Continue with IV antibiotics and make n.p.o. after midnight in case if he does need surgery. Plan/VTE VTE Prophylaxis Ordered?: Yes Plan 1. Peritonsillar abscess and uveitis Rapid strep negative and mono screen negative ENT consulted, recommendations appreciated IV Unasyn day 2 N.p.o. after midnight in case surgery is needed in the morning 2. Alcohol use disorder Patient drinks about a sixpack a beer a day CIWA protocol Thiamine, folic acid, and multivitamin 3. Tobacco use disorder Patient recently quit smoking and now is chewing tobacco/nicotine 4. DVT prophylaxis Due to planned procedure, SCDs and teds Disposition: Pending clinical improvement and ENT evaluation VS, I&O, 24H, Fishbone Vital Signs/I&O Vital Signs Date Time Temp Pulse Resp B/P (MAP) Pulse Ox O2 Delivery O2 Flow Rate FiO2 04/22/21 20:10 18 04/22/21 17:32 Room Air 04/22/21 14:00 76 122/69 04/22/21 14:00 97.5 97 I&O- Last 24 Hours up to 6 AM 04/22/21 06:00 Intake Total 2920 ml Output Total 800 ml Balance 2120 ml Laboratory Data 24H LABS Laboratory Tests 2 04/22/21 05:56: Nucleated Red Blood Cells % (auto) 0.0, Anion Gap 7L, Glomerular Filtration Rate > 60.0, Calcium Level 8.3L CBC/BMP Laboratory Tests 04/22/21 05:56 Microbiology Microbiology 04/21/21 Group A Streptococcus Screen (GALDINO) - Final, Complete TERENCE ROMAN DO Apr 22, 2021 20:34
[2021-04-22 22:00] VITALS: BP 129/1
[2021-04-23] MEDS: AMPICILLIN SOD/SULBACTAM SOD 3 GM in D5W MINI-BAG PLUS 100 ML IV SCH ×4 (00:33→17:30)
[2021-04-23] MEDS: PERCOCET 5MG/325MG TAB PO PRN ×3 (05:18→20:06)
[2021-04-23 06:00] VITALS: BP 121/78
[2021-04-23 07:30] LABS: HEMATOCRIT 46.6 % (42.0-52.0); HEMOGLOBIN 16.4 g/dl (13.5-17.5); MEAN CORPUSCULAR HEMOGLOBIN 32.2 pg (27.0-33.0); MEAN CORPUSCULAR HGB CONC 35.2 g/dl (32.0-36.5); MEAN CORPUSCULAR VOLUME 91.6 fl (80.0-96.0); PLATELET COUNT, AUTOMATED 220 10^3/uL (150-450); RED BLOOD COUNT 5.09 10^6/uL (4.30-6.10); WHITE BLOOD COUNT 7.4 10^3/uL (4.0-10.0)
[2021-04-23 08:10] LABS: BLOOD UREA NITROGEN 14 MG/DL (7-18); CALCIUM LEVEL 8.4 MG/DL (8.5-10.1); CARBON DIOXIDE LEVEL 28 MEQ/L (21-32); CHLORIDE LEVEL 109 MEQ/L (98-107); CREATININE FOR GFR 0.83 MG/DL (0.70-1.30); GLOMERULAR FILTRATION RATE > 60.0 (>60); GLUCOSE, FASTING 96 MG/DL (70-100); POTASSIUM SERUM 4.3 MEQ/L (3.5-5.1); SODIUM LEVEL 143 MEQ/L (136-145)
[2021-04-23] MEDS: MULTIVITAMINS/MINERALS THERAP 1 TAB PO SCH (09:40)
[2021-04-23] MEDS: MORPHINE 2 MG/ML 1ML VIAL (J2270) IV PRN (09:40)
[2021-04-23] MEDS: THIAMINE 100 MG TAB PO SCH ×2 (09:40→20:05)
[2021-04-23] MEDS: FOLIC ACID 1 MG TAB PO SCH (09:40)
[2021-04-23] MEDS: NICOTINE 21MG/24HR 1 EA TRANSDERMAL TD SCH (09:41)
--- NOTE | 2021-04-23 09:41 | IPNPDOC ---
Subjective Date Seen The patient was seen on 04/23/21. Subjective Chief Complaint/HPI Peritonsillar cellulitis/parapharyngeal cellulitis Events since last encounter Alex is a 31-year-old gentleman who was admitted for parapharyngeal/peritonsillar cellulitis. On admission his white count was 10. It went up to 15 yesterday. Today at 7.4. He reports feeling better. He still notices some swelling. Tolerating p.o.'s adequately. No fever since admission. Objective Physical Examination General Exam: Positive: Alert, Cooperative Eye Exam: Positive: EOMI; Negative: Sclera icteric Chest Exam: Positive: Clear to auscultation Heart Exam: Positive: Rate Normal, Regular Rhythm Abdomen Exam: Positive: Normal bowel sounds, Soft; Negative: Tenderness Extremity Exam: Negative: Edema Neuro Exam: Positive: Normal Speech, Cranial Nerves 3-12 NL Psych Exam: Positive: Mental status NL, Mood NL Other physical findings On examination the parapharyngeal area is back to normal. Adenopathy in the neck is decreased. Assessment /Plan Plan/VTE VTE Prophylaxis Ordered?: Yes Plan Alex is responded nicely to IV antibiotics. I would recommend an additional 24 hours and then he can go home on 10 days of oral antibiotics including coverage for anaerobes. He does not need to be n.p.o. at this point as I think is highly unlikely to require any surgical intervention. VS, I&O, 24H, Fishbone Vital Signs/I&O Vital Signs Date Time Temp Pulse Resp B/P (MAP) Pulse Ox O2 Delivery O2 Flow Rate FiO2 04/23/21 06:00 97.3 60 20 121/78 (92) 96 Room Air I&O- Last 24 Hours up to 6 AM 04/23/21 06:00 Intake Total 2120 ml Output Total 925 ml Balance 1195 ml Laboratory Data 24H LABS Laboratory Tests 2 04/23/21 07:08: Nucleated Red Blood Cells % (auto) 0.0, Anion Gap 6L, Glomerular Filtration Rate > 60.0, Calcium Level 8.4L CBC/BMP Laboratory Tests 04/23/21 07:08 Microbiology Microbiology 04/21/21 Group A Streptococcus Screen (GALDINO) - Final, Complete Leonard Carey MD Apr 23, 2021 09:41
[2021-04-23 14:00] VITALS: BP 130/71
--- NOTE | 2021-04-23 16:31 | IPNPDOC ---
Subjective Date Seen The patient was seen on 04/23/21. Subjective Chief Complaint/HPI Mr. Hernandez is a 29-year-old male with history of smoking who presents with throat pain with difficulty swallowing solids. This morning, he denies any chest pain or dyspnea. He is able to swallow solids but it irritates his throat. ENT saw patient, recommending an additional day of antibiotics and then a 10-day course of oral antibiotics. Patient will most likely not need surgery Objective Physical Examination General Exam: Positive: Alert, Cooperative Eye Exam: Positive: EOMI; Negative: Sclera icteric Chest Exam: Positive: Clear to auscultation Heart Exam: Positive: Rate Normal, Regular Rhythm Abdomen Exam: Positive: Normal bowel sounds, Soft; Negative: Tenderness Extremity Exam: Negative: Edema Neuro Exam: Positive: Normal Speech, Cranial Nerves 3-12 NL Psych Exam: Positive: Mental status NL, Mood NL Assessment /Plan Assessment Mr. Hernandez is a 29-year-old male with history of smoking who presents with throat pain with difficulty swallowing solids. He was found to have right peritonsillar abscess and uveitis. ENT consulted. Patient will most likely not need surgery. One more day of IV antibiotics followed by a 10-day course of p.o. antibiotics. Plan/VTE VTE Prophylaxis Ordered?: Yes Plan 1. Peritonsillar abscess and uveitis Rapid strep negative and mono screen negative ENT consulted, recommendations appreciated IV Unasyn day 3 2. Alcohol use disorder Patient drinks about a sixpack a beer a day CIWA protocol Thiamine, folic acid, and multivitamin 3. Tobacco use disorder Patient recently quit smoking and now is chewing tobacco/nicotine 4. DVT prophylaxis SCDs and teds Disposition: ENT recommending 1 more day of IV antibiotics followed by 10 days of p.o. antibiotics VS, I&O, 24H, Fishbone Vital Signs/I&O Vital Signs Date Time Temp Pulse Resp B/P (MAP) Pulse Ox O2 Delivery O2 Flow Rate FiO2 04/23/21 14:00 98.8 73 17 130/71 (90) 96 Room Air I&O- Last 24 Hours up to 6 AM 04/23/21 06:00 Intake Total 2120 ml Output Total 925 ml Balance 1195 ml Laboratory Data 24H LABS Laboratory Tests 2 04/23/21 07:08: Nucleated Red Blood Cells % (auto) 0.0, Anion Gap 6L, Glomerular Filtration Rate > 60.0, Calcium Level 8.4L CBC/BMP Laboratory Tests 04/23/21 07:08 Microbiology Microbiology 04/21/21 Group A Streptococcus Screen (GALDINO) - Final, Complete TERENCE ROMAN DO Apr 23, 2021 16:31
[2021-04-23] MEDS: DOCUSATE SODIUM 100MG CAPSULE PO SCH ×2 (17:30→20:05)
[2021-04-23 22:00] VITALS: BP 121/55
[2021-04-24] MEDS: AMPICILLIN SOD/SULBACTAM SOD 3 GM in D5W MINI-BAG PLUS 100 ML IV SCH ×3 (00:28→12:00)
[2021-04-24] MEDS: PERCOCET 5MG/325MG TAB PO PRN (05:38)
[2021-04-24 06:00] VITALS: BP 109/59
[2021-04-24 07:36] LABS: HEMATOCRIT 48.7 % (42.0-52.0); HEMOGLOBIN 16.8 g/dl (13.5-17.5); MEAN CORPUSCULAR HEMOGLOBIN 31.2 pg (27.0-33.0); MEAN CORPUSCULAR HGB CONC 34.5 g/dl (32.0-36.5); MEAN CORPUSCULAR VOLUME 90.4 fl (80.0-96.0); PLATELET COUNT, AUTOMATED 242 10^3/uL (150-450); RED BLOOD COUNT 5.39 10^6/uL (4.30-6.10)
[2021-04-24 07:51] LABS: BLOOD UREA NITROGEN 14 MG/DL (7-18); CALCIUM LEVEL 9.1 MG/DL (8.5-10.1); CARBON DIOXIDE LEVEL 27 MEQ/L (21-32); CHLORIDE LEVEL 107 MEQ/L (98-107); GLOMERULAR FILTRATION RATE > 60.0 (>60); GLUCOSE, FASTING 99 MG/DL (70-100); POTASSIUM SERUM 4.4 MEQ/L (3.5-5.1); SODIUM LEVEL 139 MEQ/L (136-145)
[2021-04-24] MEDS: DOCUSATE SODIUM 100MG CAPSULE PO SCH (09:01)
[2021-04-24] MEDS: THIAMINE 100 MG TAB PO SCH (09:01)
[2021-04-24] MEDS: NICOTINE 21MG/24HR 1 EA TRANSDERMAL TD SCH (09:01)
[2021-04-24] MEDS: FOLIC ACID 1 MG TAB PO SCH (09:01)
[2021-04-24] MEDS: MULTIVITAMINS/MINERALS THERAP 1 TAB PO SCH (09:01)
[2021-04-24] MEDS ORDERED: NICOTINE POLACRILEX 2 MG GUM PO PRN (09:20)
[2021-04-24] MEDS ORDERED: AUGM875T28 PO (09:35)
[2021-04-24] MEDS ORDERED: PERCOCET PO ×2 (09:35→09:37)
[2021-04-24] MEDS ORDERED: COLA100C5 PO (09:35)
[2021-04-24] MEDS ORDERED: NICO2GUM PO (09:37)
--- NOTE | 2021-04-24 22:54 | DS.PDOC ---
Discharge Summary General Date of Admission Apr 21, 2021 at 13:45 Date of Discharge Apr 24, 2021 Specialist/Consultants Inv[facility] ENTDr. Carey Discharge Summary PROCEDURES PERFORMED DURING STAY: None ADMITTING DIAGNOSES: 1. Peritonsillar abscess and uveitis 2. Alcohol use disorder 3. Tobacco use disorder DISCHARGE DIAGNOSES: 1. Peritonsillar abscess and uveitis 2. Alcohol use disorder 3. Tobacco use disorder COMPLICATIONS/CHIEF COMPLAINT: Peritonsillar Abscess, Uvulitis. HISTORY OF PRESENT ILLNESS: Mr. Hernandez is a 29-year-old male with history of smoking who presents with throat pain with difficulty swallowing solids. He denies any sick contacts, recent travel, or recent hospitalizations. The sore throat started about 3 weeks ago. He describes the pain as annoying and throbbing. It progressively gotten worse the past 3 weeks. This morning he woke up and he cannot swallow solid. He can swallow a little of liquids. He denies any fever or chills, chest pain, dyspnea, abdominal pain, diarrhea, or dysuria. He came into the ED for evaluation. His uvula was swollen and was taken to the right side of his throat. CT neck with contrast demonstrates developing peritonsillar abscess on the right. There is mild mass-effect upon the airway. ED provider contacted ENT, Dr. Carey. Recommended IV antibiotics and monitor the patient overnight. If his symptoms improved tomorrow, he would not need surgery. His symptoms worsen or stays the same, he may need surgery. He will be put on a clear liquid diet and switch to n.p.o. at midnight. Patient will be admitted for peritonsillar abscess. HOSPITAL COURSE: Patient was started on IV Unasyn. Patient had improvement and conservative management was pursued. Patient was able to swallow a solid diet. ENT recommended a few days of IV antibiotics. On day of discharge, patient had 12 doses of Unasyn (3 day's worth of IV antibiotics). Today, patient feels better and felt ready for home. He was discharged home with 10 days of Augmentin. DISCHARGE MEDICATIONS: Please see below. ALLERGIES: Please see below. PHYSICAL EXAMINATION ON DISCHARGE: VITAL SIGNS: Please see below. GENERAL: Comfortable, in no apparent distress HEENT: Head normocephalic, atraumatic NECK: Supple CARDIOVASCULAR EXAMINATION: Regular rate and rhythm RESPIRATORY EXAMINATION: Lungs clear to auscultation bilaterally ABDOMINAL EXAMINATION: Soft, non-tender, normal bowel sounds EXTREMITIES: No pitting edema bilaterally SKIN: Warm and dry NEUROLOGICAL EXAMINATION: CN 3-12 grossly intact PSYCHIATRIC EXAMINATION: Normal mood and affect LABORATORY DATA: Please see below. IMAGING: Radiologist interpretation CT Neck with contrast 1. Findings worrisome for developing peritonsillar abscess on the right with mild mass effect upon the airway. 2. Question new hypodense lesion in the intrinsic tongue on the right with artifact from adjacent dental hardware. 3. Dental disease. 4. No confluent lymphadenopathy. PROGNOSIS: Good ACTIVITY: As tolerated. DIET: As tolerated DISCHARGE PLAN: Home DISPOSITION: Home, Self-Care. DISCHARGE INSTRUCTIONS: 1. Follow up with PCP within 1 week 2. Follow up with ENT in 1 to 2 weeks 3. Take antibiotics to completion DISCHARGE CONDITION: Stable Total time spent on discharge planning, discharge summary, and medication reconciliation: 35 minutes Vital Signs/I&Os Vital Signs Date Time Temp Pulse Resp B/P (MAP) Pulse Ox O2 Delivery O2 Flow Rate FiO2 04/24/21 07:30 16 04/24/21 06:00 98.1 59 109/59 (76) 96 Room Air I&O- Last 24 Hours up to 6 AM 04/24/21 05:59 Intake Total 1800 ml Output Total 2000 ml Balance -200 ml Laboratory Data Labs 24H Laboratory Tests 2 04/24/21 07:20: Nucleated Red Blood Cells % (auto) 0.0, Anion Gap 5L, Glomerular Filtration Rate > 60.0, Calcium Level 9.1 CBC/BMP Laboratory Tests 04/24/21 07:20 Microbiology Microbiology 04/21/21 Group A Streptococcus Screen (GALDINO) - Final, Complete Discharge Medications Scheduled Amoxicillin/Potassium Clav (Augmentin 875-125 Tablet) 1 Each Tablet, 1 TAB PO BID Docusate Sodium (Colace) 100 Mg Capsule, 100 MG PO BID Scheduled PRN Nicotine Polacrilex (Nicotine Gum) 2 Mg Gum, 2 MG PO Q4HP PRN for NICOTINE WITHDRAWAL Oxycodone/Acetaminophen (Oxycodone-Acetaminophen 5-325) 1 Each Tablet, 1 TAB PO Q6HP PRN for MODERATE PAIN (PS 5-7) Allergies Coded Allergies: naproxen (Verified Allergy, Unknown, 10/06/18) tramadol (Verified Adverse Reaction, Unknown, VOMITS, 10/06/18) TERENCE ROMAN DO Apr 24, 2021 22:54
== END 2021-04-24 12:29 | disposition home or self-care (01) | DRG 113 ==
LOC: M ED 08:08 → M ED INP 13:45 → ENRESERV 14:36 → M MSPAV 15:57
PROVIDERS: ADMIT Internal Medicine; ATTEND Internal Medicine
DX: J36 Peritonsillar abscess (principal); H20.9 Unspecified iridocyclitis; F10.10 Alcohol abuse, uncomplicated; F17.290 Nicotine dependence, other tobacco product, uncomplicated; Z20.822 Contact with and (suspected) exposure to COVID-19; Z88.1 Allergy status to other antibiotic agents; Z88.8 Allergy status to other drugs, medicaments and biological substances

== ENCOUNTER 2021-12-11 20:59 | Emergency (ER) | payer OTHER ==
[~2021-12-11] VITALS: Ht 157.5 cm; Wt 93.0 kg
[~2021-12-11 20:59] MED LIST changes: -ACET1TAB16; +ACET300T48; +AUGM875T28 PO; +COLA100C5 PO; +NICO2GUM PO; +PERCOCET PO; +TIZA10TA; -TIZA4TAB4
[2021-12-11 21:01] VITALS: BP 137/77
[2021-12-11] MEDS ORDERED: GABA-1171 (21:07)
[2021-12-11] MEDS ORDERED: LIDO1PAD (21:07)
[2021-12-11] MEDS ORDERED: CYCL-707 (21:07)
== END 2021-12-11 23:34 | disposition left against medical advice (07) ==
LOC: M ED 20:59
DX: Z53.21 Procedure and treatment not carried out due to patient leaving prior to being seen by health care provider (principal)

== ENCOUNTER → 2021-12-12 | Outpatient (CLI) | payer MEDICAID ==
[~2021-12-12] MED LIST changes: +CYCL-707; +GABA-1171; +LIDO1PAD
== END ==
LOC: M RAD 14:43
PROVIDERS: ATTEND Nurse Practitioner Family
DX: R51.9 Headache, unspecified (principal)

== ENCOUNTER → 2021-12-16 | Outpatient (CLI) | payer MEDICAID ==
[~2021-12-16] MED LIST changes: +PRED1TABL PO
[2021-12-16 11:04] LABS: BASO # 0.1 10^3/uL (0.0-0.2); BASO % 0.9 % (0.0-1.0); EOS # 0.6 10^3/uL (0.0-0.5); EOS % 4.1 % (0.0-3.0); HEMOGLOBIN 17.4 g/dl (13.5-17.5); LYMPH # 2.4 10^3/uL (1.5-5.0); LYMPH % 17.1 % (24.0-44.0); MEAN CORPUSCULAR HEMOGLOBIN 31.7 pg (27.0-33.0); MEAN CORPUSCULAR HGB CONC 34.8 g/dl (32.0-36.5); MEAN CORPUSCULAR VOLUME 91.1 fl (80.0-96.0); MONO # 1.1 10^3/uL (0.0-0.8); MONO % 7.9 % (2.0-8.0); NEUTROPHILS # 9.3 10^3/uL (1.5-8.5); NEUTROPHILS % 67.7 % (36.0-66.0); PLATELET COUNT, AUTOMATED 440 10^3/uL (150-450); RED BLOOD COUNT 5.49 10^6/uL (4.30-6.10); WHITE BLOOD COUNT 13.8 10^3/uL (4.0-10.0)
[2021-12-16 11:22] LABS: ERYTHROCYTE SEDIMENTATION RATE 8 mm/hr (0-15)
[2021-12-16 11:34] LABS: ALBUMIN 3.6 GM/DL (3.2-5.2); ALT/SGPT 176 U/L (12-78); BILIRUBIN,TOTAL 0.4 MG/DL (0.2-1.0); BLOOD UREA NITROGEN 8 MG/DL (7-18); C REACTIVE PROTEIN QUANTITATIV 1.68 MG/DL (0.00-0.30); CALCIUM LEVEL 8.9 MG/DL (8.5-10.1); CARBON DIOXIDE LEVEL 33 MEQ/L (21-32); CHLORIDE LEVEL 104 MEQ/L (98-107); GLOMERULAR FILTRATION RATE > 60.0 (>60); GLUCOSE, FASTING 69 MG/DL (70-100); POTASSIUM SERUM 4.5 MEQ/L (3.5-5.1); SODIUM LEVEL 140 MEQ/L (136-145); TOTAL PROTEIN 7.3 GM/DL (6.4-8.2)
== END ==
LOC: M LAB 10:42
PROVIDERS: ATTEND Nurse Practitioner Family
DX: R07.9 Chest pain, unspecified (principal)

== ENCOUNTER 2021-12-18 19:21 | Emergency (ER) | payer MEDICAID ==
[~2021-12-18 19:21] MED LIST changes: -PRED1TABL PO
[2021-12-18] MEDS ORDERED: PRED1TABL PO (20:30)
[2021-12-18 20:32] VITALS: BP 126/66
== END 2021-12-18 21:13 | disposition left against medical advice (07) ==
LOC: M ED 19:21
DX: F10.929 Alcohol use, unspecified with intoxication, unspecified (principal); M54.50 Low back pain, unspecified; V48.0XXA Car driver injured in noncollision transport accident in nontraffic accident, initial encounter; Z88.6 Allergy status to analgesic agent; Z88.5 Allergy status to narcotic agent; Z53.21 Procedure and treatment not carried out due to patient leaving prior to being seen by health care provider; Y99.9 Unspecified external cause status

== ENCOUNTER 2021-12-19 16:19 | Emergency (ER) | payer MEDICAID ==
[~2021-12-19] VITALS: Ht 162.6 cm; Wt 92.6 kg
[~2021-12-19 16:19] MED LIST changes: +PRED1TABL PO
[2021-12-19] MEDS ORDERED: METOCLOPRAMIDE 10MG TAB PO ONE (17:15)
[2021-12-19] MEDS ORDERED: ACETAMINOPHEN 500 MG TAB PO ONE (17:15)
[2021-12-19 18:57] VITALS: BP 130/83
== END 2021-12-19 20:49 | disposition home or self-care (01) ==
LOC: M ED 16:19
DX: S00.03XA Contusion of scalp, initial encounter (principal); S60.453A Superficial foreign body of left middle finger, initial encounter; V49.40XA Driver injured in collision with unspecified motor vehicles in traffic accident, initial encounter; F17.200 Nicotine dependence, unspecified, uncomplicated; F10.10 Alcohol abuse, uncomplicated; Y92.9 Unspecified place or not applicable; Y93.9 Activity, unspecified; Y99.9 Unspecified external cause status; Z88.6 Allergy status to analgesic agent; Z88.5 Allergy status to narcotic agent

== ENCOUNTER → 2022-11-05 | Outpatient (CLI) | payer MEDICAID | LOC: M OUTALCOH 08:41 | PROVIDERS: ATTEND Psychiatry & Neurology Psychiatry | DX: Z72.0 Tobacco use (principal); F10.10 Alcohol abuse, uncomplicated; Z03.89 Encounter for observation for other suspected diseases and conditions ruled out ==

== ENCOUNTER 2022-11-22 14:52 | Outpatient (RCR) | payer MEDICAID | END 2022-11-28 | LOC: M OUTALCOH 14:52 | PROVIDERS: ATTEND Psychiatry & Neurology Psychiatry | DX: F10.10 Alcohol abuse, uncomplicated (principal); Z72.0 Tobacco use ==

== ENCOUNTER 2022-12-27 15:00 | Outpatient (RCR) | payer MEDICAID | END 2022-12-28 | LOC: M OUTALCOH 15:00 | PROVIDERS: ATTEND Psychiatry & Neurology Psychiatry | DX: F10.10 Alcohol abuse, uncomplicated (principal); Z72.0 Tobacco use ==

== ENCOUNTER 2023-01-03 15:10 | Emergency (ER) | payer MEDICAID ==
[~2023-01-03] VITALS: Ht 162.6 cm; Wt 90.0 kg
[2023-01-03 15:11] VITALS: BP 145/74; TEMP 98.4; O2SAT 96
[2023-01-04] MEDS ORDERED: CEPH500C PO (10:22)
== END 2023-01-03 17:04 | disposition left against medical advice (07) ==
LOC: M ED 15:10
DX: Z53.21 Procedure and treatment not carried out due to patient leaving prior to being seen by health care provider (principal)

== ENCOUNTER 2023-01-04 08:31 | Emergency (ER) | payer MEDICAID, OTHER ==
[~2023-01-04] VITALS: Ht 162.6 cm; Wt 83.6 kg
[2023-01-04 08:31] VITALS: TEMP 97.6
[2023-01-04] MEDS ORDERED: NORCO, ANEXSIA 5/325MG TABLET (HYDROcodone/ACETAMINOPHEN) PO ONE (09:00)
[2023-01-04 10:15] VITALS: BP 124/71
[2023-01-04 10:16] VITALS: O2SAT 95
[2023-01-04] MEDS ORDERED: CEPH500C PO (10:22)
== END 2023-01-04 10:35 | disposition home or self-care (01) ==
LOC: M ED 08:31
DX: L03.116 Cellulitis of left lower limb (principal); F17.200 Nicotine dependence, unspecified, uncomplicated; Z88.5 Allergy status to narcotic agent; Z88.6 Allergy status to analgesic agent; Z79.01 Long term (current) use of anticoagulants; Z79.899 Other long term (current) drug therapy

== ENCOUNTER 2023-01-07 13:30 | Emergency (ER) | payer OTHER ==
[~2023-01-07] VITALS: Ht 162.6 cm; Wt 90.9 kg
[~2023-01-07 13:30] MED LIST changes: +CEPH500C PO
[2023-01-07 15:48] LABS: BASO # 0.1 10^3/uL (0.0-0.2); BASO % 0.6 % (0.0-1.0); EOS # 0.6 10^3/uL (0.0-0.5); EOS % 5.5 % (0.0-3.0); HEMOGLOBIN 16.6 g/dl (13.5-17.5); LYMPH # 1.8 10^3/uL (1.5-5.0); MEAN CORPUSCULAR HEMOGLOBIN 30.6 pg (27.0-33.0); MEAN CORPUSCULAR HGB CONC 34.6 g/dl (32.0-36.5); MEAN CORPUSCULAR VOLUME 88.4 fl (80.0-96.0); MONO # 0.5 10^3/uL (0.0-0.8); MONO % 5.1 % (2.0-8.0); NEUTROPHILS # 7.1 10^3/uL (1.5-8.5); NEUTROPHILS % 70.3 % (36.0-66.0); PLATELET COUNT, AUTOMATED 280 10^3/uL (150-450); RED BLOOD COUNT 5.43 10^6/uL (4.30-6.10); WHITE BLOOD COUNT 10.1 10^3/uL (4.0-10.0)
[2023-01-07 16:06] LABS: INR 0.95; PROTHROMBIN TIME 12.9 SECONDS (12.5-14.5)
[2023-01-07 16:21] LABS: ERYTHROCYTE SEDIMENTATION RATE 27 mm/hr (0-15)
[2023-01-07] MEDS ORDERED: CEPHALEXIN 500 MG CAP PO ONE (16:45)
[2023-01-07] MEDS ORDERED: ACETAMINOPHEN TAB 650MG DOSE (2X325MG) PO ONE (16:45)
[2023-01-07] MEDS ORDERED: KETOROLAC 30 MG/ML 1ML VIAL IV ONE (17:20)
[2023-01-07] MEDS ORDERED: ELIQ5TAB PO (17:53)
[2023-01-07] MEDS ORDERED: MAALOX 30 ML SUSP *UDC PO ONE (18:00)
[2023-01-07] MEDS ORDERED: APIXABAN 5 MG TAB (ELIQUIS) PO ONE (18:00)
[2023-01-07 18:18] VITALS: BP 125/88; TEMP 98.7; O2SAT 98
== END 2023-01-07 18:18 | disposition home or self-care (01) ==
LOC: M ED 13:30
DX: I80.02 Phlebitis and thrombophlebitis of superficial vessels of left lower extremity (principal); M54.50 Low back pain, unspecified; F17.200 Nicotine dependence, unspecified, uncomplicated; F12.10 Cannabis abuse, uncomplicated; Z79.01 Long term (current) use of anticoagulants; Z79.899 Other long term (current) drug therapy
CPT/HCPCS: 80047; 85025; 85610; 85652; 86140; 87040; 93971; 96374; 99284; J1885

== ENCOUNTER → 2023-01-15 | Outpatient (CLI) | payer OTHER ==
[~2023-01-15] MED LIST changes: +ELIQ5TAB PO
== END ==
LOC: M RAD 15:45
PROVIDERS: ATTEND Physician Assistant
DX: R22.42 Localized swelling, mass and lump, left lower limb (principal)

== ENCOUNTER 2023-01-17 16:00 | Outpatient (RCR) | payer MEDICAID | END 2023-01-28 | LOC: M OUTALCOH 16:00 | PROVIDERS: ATTEND Psychiatry & Neurology Psychiatry | DX: F10.10 Alcohol abuse, uncomplicated (principal); Z72.0 Tobacco use ==

== ENCOUNTER → 2023-02-28 | Outpatient (RCR) | payer MEDICAID | LOC: M OUTALCOH 01-31 13:15 | PROVIDERS: ATTEND Psychiatry & Neurology Psychiatry | DX: F10.10 Alcohol abuse, uncomplicated (principal); Z72.0 Tobacco use ==

== ENCOUNTER 2023-03-11 13:08 | Emergency (ER) | payer OTHER ==
[~2023-03-11] VITALS: Ht 162.6 cm; Wt 86.9 kg
[2023-03-11] MEDS ORDERED: MORPHINE 10 MG/ML 1ML VIAL IM ONE (17:05)
[2023-03-11] MEDS ORDERED: HYDR-3713 PO (17:06)
[2023-03-11] MEDS ORDERED: ELIQ5TAB PO (17:06)
[2023-03-11] MEDS ORDERED: ASPE4PAD TOP (17:06)
[2023-03-11] MEDS ORDERED: IBUP-1022 PO (17:06)
[2023-03-11] MEDS ORDERED: OMEP1CAP73 PO (17:06)
[2023-03-11] MEDS ORDERED: METH-1165 PO (17:06)
[2023-03-11 17:23] VITALS: BP 118/60; TEMP 98.8; O2SAT 98
== END 2023-03-11 17:24 | disposition home or self-care (01) ==
LOC: M ED 13:08
DX: I82.812 Embolism and thrombosis of superficial veins of left lower extremity (principal); M79.605 Pain in left leg; M54.50 Low back pain, unspecified; F17.200 Nicotine dependence, unspecified, uncomplicated; Z86.711 Personal history of pulmonary embolism; Z88.5 Allergy status to narcotic agent; Z88.6 Allergy status to analgesic agent; Z79.01 Long term (current) use of anticoagulants; Z79.899 Other long term (current) drug therapy

== ENCOUNTER → 2023-03-14 | Outpatient (CLI) | payer OTHER ==
[~2023-03-14] MED LIST changes: +ASPE4PAD TOP; +HYDR-3713 PO; +IBUP-1022 PO; +METH-1165 PO; +OMEP1CAP73 PO
[2023-03-14 16:01] LABS: BASO # 0.1 10^3/uL (0.0-0.2); BASO % 0.7 % (0.0-1.0); EOS # 0.4 10^3/uL (0.0-0.5); EOS % 4.9 % (0.0-3.0); HEMATOCRIT 51.1 % (42.0-52.0); HEMOGLOBIN 17.3 g/dl (13.5-17.5); LYMPH # 0.8 10^3/uL (1.5-5.0); LYMPH % 10.7 % (24.0-44.0); MEAN CORPUSCULAR HEMOGLOBIN 30.4 pg (27.0-33.0); MEAN CORPUSCULAR HGB CONC 33.9 g/dl (32.0-36.5); MEAN CORPUSCULAR VOLUME 89.6 fl (80.0-96.0); MONO # 0.3 10^3/uL (0.0-0.8); MONO % 3.5 % (2.0-8.0); NEUTROPHILS # 5.9 10^3/uL (1.5-8.5); NEUTROPHILS % 79.9 % (36.0-66.0); PLATELET COUNT, AUTOMATED 197 10^3/uL (150-450); WHITE BLOOD COUNT 7.4 10^3/uL (4.0-10.0)
[2023-03-14 16:10] LABS: ERYTHROCYTE SEDIMENTATION RATE 8 mm/hr (0-15)
[2023-03-14 16:25] LABS: C REACTIVE PROTEIN QUANTITATIV < 0.40 MG/DL (<1.0)
[2023-03-14 16:27] LABS: ALBUMIN 4.2 G/DL (3.2-5.2); ALKALINE PHOSPHATASE 80 U/L (46-116); ALT/SGPT 27 U/L (7.0-40); AST/SGOT 12 U/L (<34); BILIRUBIN,TOTAL 0.9 MG/DL (0.3-1.2); BLOOD UREA NITROGEN 9 MG/DL (9-23); CALCIUM LEVEL 9.2 MG/DL (8.5-10.1); CARBON DIOXIDE LEVEL 25 MMOL/L (20-31); CHLORIDE LEVEL 106 MMOL/L (98-107); CREATININE FOR GFR 0.66 MG/DL (0.70-1.30); GLOMERULAR FILTRATION RATE > 60.0 (>60); GLUCOSE, FASTING 66 MG/DL (60-100); POTASSIUM SERUM 4.5 MMOL/L (3.5-5.1); SODIUM LEVEL 140 MMOL/L (136-145); TOTAL PROTEIN 6.9 G/DL (5.7-8.2)
[2023-03-16 19:00] LABS: URIC ACID 7.1 MG/DL (3.7-9.2)
[2023-03-16 19:03] LABS: RHEUMATOID FACTOR QUANT 5.8 IU/ML (<14)
== END ==
LOC: M PLALAB 11:51
PROVIDERS: ATTEND Nurse Practitioner Family
DX: M54.50 Low back pain, unspecified (principal)

== ENCOUNTER → 2023-04-05 | Outpatient (CLI) | payer OTHER ==
[~2023-04-05] MED LIST changes: +DOXY-444 PO; +TIZA4CAP PO
== END ==
LOC: M PLAIMG 07:03
PROVIDERS: ATTEND Physician Assistant Surgical
DX: M54.50 Low back pain, unspecified (principal)

== ENCOUNTER → 2023-04-12 | Outpatient (CLI) | payer OTHER | LOC: M RAD 06:56 | PROVIDERS: ATTEND Physician Assistant Surgical | DX: M54.2 Cervicalgia (principal) ==

== ENCOUNTER → 2023-05-07 | Outpatient (CLI) | payer OTHER ==
[2023-05-07 13:57] LABS: BASO # 0.1 10^3/uL (0.0-0.2); EOS # 0.5 10^3/uL (0.0-0.5); EOS % 8.2 % (0.0-3.0); HEMATOCRIT 54.3 % (42.0-52.0); LYMPH # 2.1 10^3/uL (1.5-5.0); MEAN CORPUSCULAR HEMOGLOBIN 29.9 pg (27.0-33.0); MEAN CORPUSCULAR HGB CONC 33.1 g/dl (32.0-36.5); MONO # 0.3 10^3/uL (0.0-0.8); MONO % 4.4 % (2.0-8.0); NEUTROPHILS # 3.2 10^3/uL (1.5-8.5); NEUTROPHILS % 51.9 % (36.0-66.0); PLATELET COUNT, AUTOMATED 231 10^3/uL (150-450); RED BLOOD COUNT 6.03 10^6/uL (4.30-6.10); WHITE BLOOD COUNT 6.1 10^3/uL (4.0-10.0)
[2023-05-07 14:09] LABS: C REACTIVE PROTEIN QUANTITATIV < 0.40 MG/DL (<1.0)
[2023-05-07 14:11] LABS: ALBUMIN 3.8 G/DL (3.2-5.2); ALKALINE PHOSPHATASE 73 U/L (46-116); ALT/SGPT 43 U/L (7.0-40); AST/SGOT 19 U/L (<34); BILIRUBIN,TOTAL 0.4 MG/DL (0.3-1.2); BLOOD UREA NITROGEN 9 MG/DL (9-23); CALCIUM LEVEL 8.2 MG/DL (8.5-10.1); CARBON DIOXIDE LEVEL 26 MMOL/L (20-31); CHLORIDE LEVEL 109 MMOL/L (98-107); CREATININE FOR GFR 0.76 MG/DL (0.70-1.30); GLOMERULAR FILTRATION RATE > 60.0 (>60); GLUCOSE, FASTING 85 MG/DL (60-100); POTASSIUM SERUM 4.2 MMOL/L (3.5-5.1); SODIUM LEVEL 142 MMOL/L (136-145); TOTAL PROTEIN 6.2 G/DL (5.7-8.2)
[2023-05-07 22:11] LABS: ERYTHROCYTE SEDIMENTATION RATE 3 mm/hr (0-15)
== END ==
LOC: M LABDRWAD 08:02
PROVIDERS: ATTEND Internal Medicine Infectious Disease
DX: A69.20 Lyme disease, unspecified (principal); I82.402 Acute embolism and thrombosis of unspecified deep veins of left lower extremity

== ENCOUNTER → 2023-06-06 | Outpatient (CLI) | payer OTHER ==
[2023-06-06 15:56] LABS: RHEUMATOID FACTOR QUANT < 3.5 IU/ML (<14)
[2023-06-06 15:58] LABS: URIC ACID 7.7 MG/DL (3.7-9.2)
== END ==
LOC: M PLALAB 13:15
PROVIDERS: ATTEND Internal Medicine Infectious Disease
DX: R76.8 Other specified abnormal immunological findings in serum (principal); Z28.21 Immunization not carried out because of patient refusal

== ENCOUNTER → 2023-07-30 | Outpatient (CLI) | payer OTHER ==
[2023-07-30 13:50] LABS: BASO # 0.1 10^3/uL (0.0-0.2); BASO % 1.1 % (0.0-1.0); EOS # 0.7 10^3/uL (0.0-0.5); EOS % 7.6 % (0.0-3.0); HEMATOCRIT 48.1 % (42.0-52.0); HEMOGLOBIN 16.7 g/dl (13.5-17.5); LYMPH % 23.7 % (24.0-44.0); MEAN CORPUSCULAR HEMOGLOBIN 31.5 pg (27.0-33.0); MEAN CORPUSCULAR HGB CONC 34.7 g/dl (32.0-36.5); MEAN CORPUSCULAR VOLUME 90.6 fl (80.0-96.0); MONO # 0.5 10^3/uL (0.0-0.8); NEUTROPHILS # 5.3 10^3/uL (1.5-8.5); NEUTROPHILS % 61.4 % (36.0-66.0); PLATELET COUNT, AUTOMATED 248 10^3/uL (150-450); RED BLOOD COUNT 5.31 10^6/uL (4.30-6.10); WHITE BLOOD COUNT 8.6 10^3/uL (4.0-10.0)
[2023-07-31 08:12] LABS: ERYTHROPOIETIN 3.7 mIU/mL (2.6-18.5)
== END ==
LOC: M PLALAB 09:38
PROVIDERS: ATTEND Internal Medicine Hematology
DX: D75.1 Secondary polycythemia (principal); Z86.718 Personal history of other venous thrombosis and embolism

== ENCOUNTER 2023-08-24 09:52 | Emergency (ER) | payer OTHER ==
[~2023-08-24] VITALS: Ht 162.6 cm; Wt 88.4 kg
[2023-08-24] MEDS: MORPHINE 2 MG/ML 1ML VIAL IV PRN (11:03)
[2023-08-24 11:12] LABS: BASO # 0.1 10^3/uL (0.0-0.2); EOS # 0.6 10^3/uL (0.0-0.5); EOS % 5.5 % (0.0-3.0); LYMPH # 1.5 10^3/uL (1.5-5.0); LYMPH % 14.5 % (24.0-44.0); MEAN CORPUSCULAR HEMOGLOBIN 31.5 pg (27.0-33.0); MEAN CORPUSCULAR HGB CONC 36.2 g/dl (32.0-36.5); MEAN CORPUSCULAR VOLUME 87.2 fl (80.0-96.0); MONO # 0.5 10^3/uL (0.0-0.8); MONO % 5.1 % (2.0-8.0); NEUTROPHILS # 7.6 10^3/uL (1.5-8.5); NEUTROPHILS % 73.6 % (36.0-66.0); PLATELET COUNT, AUTOMATED 239 10^3/uL (150-450); RED BLOOD COUNT 5.39 10^6/uL (4.30-6.10); WHITE BLOOD COUNT 10.3 10^3/uL (4.0-10.0)
[2023-08-24 11:21] LABS: INR 1.1; PROTHROMBIN TIME 13.9 SECONDS (12.5-14.5)
[2023-08-24 11:28] LABS: CK-MB VALUE MASS 3.6 NG/ML (<3.6); LIPASE 29 U/L (12-53)
[2023-08-24 11:29] LABS: C REACTIVE PROTEIN QUANTITATIV < 0.40 MG/DL (<1.0)
[2023-08-24 11:31] LABS: ALBUMIN 4.1 G/DL (3.2-5.2); ALKALINE PHOSPHATASE 81 U/L (46-116); ALT/SGPT 34 U/L (7.0-40); AST/SGOT 23 U/L (<34); BILIRUBIN,DIRECT 0.2 MG/DL (<0.4); BILIRUBIN,TOTAL 0.7 MG/DL (0.3-1.2); BLOOD UREA NITROGEN 12 MG/DL (9-23); CALCIUM LEVEL 9.3 MG/DL (8.5-10.1); CARBON DIOXIDE LEVEL 24 MMOL/L (20-31); CHLORIDE LEVEL 110 MMOL/L (98-107); CREATININE FOR GFR 0.97 MG/DL (0.70-1.30); GLOMERULAR FILTRATION RATE > 60.0 (>60); GLUCOSE, FASTING 89 MG/DL (60-100); SODIUM LEVEL 141 MMOL/L (136-145); TOTAL PROTEIN 6.5 G/DL (5.7-8.2)
[2023-08-24 11:32] LABS: FREE T4 1.34 NG/DL (0.89-1.76); THYROID STIMULATING HORMONE 1.327 uIU/ML (0.55-4.78)
[2023-08-24 11:34] LABS: CPK CREATINE PHOSPHOKINASE 169 U/L (46-171); MB/CK RELATIVE INDEX 2.13 (< OR =4)
[2023-08-24] MEDS ORDERED: ISOVUE-370 76% 100ML VIAL As Ordered ONE (12:28)
[2023-08-24 12:52] LABS: CK-MB VALUE MASS 3.1 NG/ML (<3.6)
[2023-08-24 12:53] LABS: MB/CK RELATIVE INDEX 2.13 (< OR =4)
[2023-08-24] MEDS ORDERED: KETOROLAC 30 MG/ML 1ML VIAL IV ONE (14:55)
[2023-08-24] MEDS ORDERED: PRED20TA PO (14:59)
[2023-08-24] MEDS: dexAMETHasone 20MG/5ML VIAL IV ONE (15:12)
[2023-08-24 15:35] VITALS: BP 128/81; TEMP 98.2; O2SAT 98
== END 2023-08-24 15:38 | disposition home or self-care (01) ==
LOC: M ED 09:52
DX: R07.89 Other chest pain (principal); A69.20 Lyme disease, unspecified; J44.9 Chronic obstructive pulmonary disease, unspecified; Z88.5 Allergy status to narcotic agent; Z88.6 Allergy status to analgesic agent; Z86.718 Personal history of other venous thrombosis and embolism; Z79.52 Long term (current) use of systemic steroids; Z79.01 Long term (current) use of anticoagulants
CPT/HCPCS: 71045; 71275; 80048; 80076; 82550; 82553; 83690; 84439; 84443; 85025; 85610; 85730; 86140; 87486; 87581; 87633; 87798; 93005; 93041; 94760; 96374; 96375; 96376; 99285; J1100; Q9967

== ENCOUNTER → 2023-09-24 | Outpatient (CLI) | payer OTHER | LOC: M PLAIMG 10:10 | PROVIDERS: ATTEND Internal Medicine Rheumatology | DX: R76.8 Other specified abnormal immunological findings in serum (principal); M25.50 Pain in unspecified joint; R20.0 Anesthesia of skin ==

== ENCOUNTER → 2023-09-24 | Outpatient (CLI) | payer MEDICAID | LOC: M OUTALCOH 08:19 | PROVIDERS: ATTEND Psychiatry & Neurology Psychiatry | DX: Z03.89 Encounter for observation for other suspected diseases and conditions ruled out (principal); Z72.0 Tobacco use ==

== ENCOUNTER → 2023-09-24 | Outpatient (REF) | payer OTHER ==
[2023-09-24 12:52] LABS: APPEARANCE, URINE CLEAR (CLEAR); BACTERIA, URINE AUTO NEGATIVE (NEGATIVE); BILIRUBIN, URINE AUTO NEGATIVE (NEGATIVE); BLOOD, URINE BLOOD NEGATIVE (NEGATIVE); COLOR, URINE YELLOW (YELLOW); GLUCOSE, URINE (UA) AUTO NEGATIVE (NEGATIVE); KETONE, URINE AUTO NEGATIVE (NEGATIVE); LEUKOCYTE ESTERASE, URINE AUTO NEGATIVE (NEGATIVE); NITRITE, URINE AUTO NEGATIVE (NEGATIVE); PROTEIN, URINE AUTO NEGATIVE (NEGATIVE); RBC, URINE AUTO 1 /HPF (0-3); SPECIFIC GRAVITY URINE AUTO 1.011 (1.002-1.035); SQUAMOUS EPITHELIAL CELL UR AU 0 /HPF (0-6); UROBILINOGEN, URINE AUTO 0.2 mg/dL (0.0-2.0); WBC, URINE AUTO 0 /HPF (0-3)
[2023-09-24 13:00] LABS: BASO # 0.1 10^3/uL (0.0-0.2); BASO % 1.2 % (0.0-1.0); EOS # 0.3 10^3/uL (0.0-0.5); EOS % 5.4 % (0.0-3.0); HEMATOCRIT 50.8 % (42.0-52.0); HEMOGLOBIN 17.6 g/dl (13.5-17.5); LYMPH # 1.7 10^3/uL (1.5-5.0); LYMPH % 28.7 % (24.0-44.0); MEAN CORPUSCULAR HEMOGLOBIN 30.9 pg (27.0-33.0); MEAN CORPUSCULAR HGB CONC 34.6 g/dl (32.0-36.5); MEAN CORPUSCULAR VOLUME 89.3 fl (80.0-96.0); MONO # 0.4 10^3/uL (0.0-0.8); MONO % 6.5 % (2.0-8.0); NEUTROPHILS # 3.4 10^3/uL (1.5-8.5); NEUTROPHILS % 57.9 % (36.0-66.0); PLATELET COUNT, AUTOMATED 267 10^3/uL (150-450); RED BLOOD COUNT 5.69 10^6/uL (4.30-6.10); WHITE BLOOD COUNT 5.9 10^3/uL (4.0-10.0)
[2023-09-24 13:15] LABS: ERYTHROCYTE SEDIMENTATION RATE 4 mm/hr (0-15)
[2023-09-24 13:19] LABS: C REACTIVE PROTEIN QUANTITATIV < 0.40 MG/DL (<1.0)
[2023-09-24 13:20] LABS: COMPLEMENT C3 159.2 MG/DL (84.0-160.0); COMPLEMENT C4 29.2 MG/DL (12-36); CREATININE,RANDOM URINE 47.8 MG/DL
[2023-09-24 13:21] LABS: ALBUMIN 4.2 G/DL (3.2-5.2); ALKALINE PHOSPHATASE 74 U/L (46-116); ALT/SGPT 48 U/L (7.0-40); AST/SGOT 24 U/L (<34); BILIRUBIN,TOTAL 0.7 MG/DL (0.3-1.2); BLOOD UREA NITROGEN 16 MG/DL (9-23); CARBON DIOXIDE LEVEL 24 MMOL/L (20-31); CHLORIDE LEVEL 108 MMOL/L (98-107); GLOMERULAR FILTRATION RATE > 60.0 (>60); GLUCOSE, FASTING 97 MG/DL (60-100); POTASSIUM SERUM 4.4 MMOL/L (3.5-5.1); SODIUM LEVEL 138 MMOL/L (136-145)
[2023-09-24 13:23] LABS: TOTAL PROTEIN,RANDOM URINE < 6.0 MG/DL (0.0-14.0)
[2023-09-25 15:54] LABS: CALCIUM LEVEL 9.3 MG/DL (8.5-10.1)
== END ==
LOC: M SFHCRHEU 11:21
PROVIDERS: ATTEND Internal Medicine Rheumatology
DX: R76.8 Other specified abnormal immunological findings in serum (principal); M25.50 Pain in unspecified joint; R20.0 Anesthesia of skin

== ENCOUNTER 2023-10-11 15:45 | Outpatient (RCR) | payer MEDICAID | END 2023-10-29 | LOC: M OUTALCOH 15:45 | PROVIDERS: ATTEND Psychiatry & Neurology Psychiatry | DX: Z72.0 Tobacco use (principal); Z03.89 Encounter for observation for other suspected diseases and conditions ruled out ==

== ENCOUNTER 2023-11-30 20:04 | Emergency (ER) | payer MEDICAID, OTHER ==
[~2023-11-30] VITALS: Ht 162.6 cm; Wt 81.8 kg
[~2023-11-30 20:04] MED LIST changes: +DOXY-440 PO; -DOXY-444 PO
[2023-11-30] MEDS: NORCO, ANEXSIA 5/325MG TABLET (HYDROcodone/ACETAMINOPHEN) PO ONE ×2 (21:32→22:54)
[2023-11-30 23:07] VITALS: TEMP 97.5
[2023-12-01] MEDS ORDERED: HYDR-3713 PO (01:02)
[2023-12-01 01:22] VITALS: BP 112/61; O2SAT 98
[2023-12-01] MEDS: NORCO 5/325MG TABLET (HOME DOSE PACK) PO ONE (01:29)
== END 2023-12-01 01:35 | disposition home or self-care (01) ==
LOC: M ED 20:04
DX: S20.211A Contusion of right front wall of thorax, initial encounter (principal); S42.021A Displaced fracture of shaft of right clavicle, initial encounter for closed fracture; S43.101A Unspecified dislocation of right acromioclavicular joint, initial encounter; V28.01XA Electric (assisted) bicycle driver injured in noncollision transport accident in nontraffic accident, initial encounter; M25.78 Osteophyte, vertebrae; A69.20 Lyme disease, unspecified; K21.9 Gastro-esophageal reflux disease without esophagitis; Y92.009 Unspecified place in unspecified non-institutional (private) residence as the place of occurrence of the external cause; Y93.89 Activity, other specified; Y99.9 Unspecified external cause status; Z88.5 Allergy status to narcotic agent; Z88.6 Allergy status to analgesic agent; Z79.01 Long term (current) use of anticoagulants; Z79.52 Long term (current) use of systemic steroids; Z79.1 Long term (current) use of non-steroidal anti-inflammatories (NSAID)

== ENCOUNTER 2023-12-06 08:09 | Day surgery (SDC) | payer OTHER ==
[~2023-12-06] VITALS: Ht 162.6 cm; Wt 81.6 kg
[2023-12-06] MEDS ORDERED: LR 1,000 ML IV SCH (08:40)
[2023-12-06] MEDS ORDERED: LIDOCAINE 2% 100MG/5ML SDV (FOR ANES.) As Ordered ONE (09:19)
[2023-12-06] MEDS ORDERED: propofoL 200 MG/20 ML VIAL As Ordered ONE (09:19)
[2023-12-06] MEDS ORDERED: MIDAZOLAM INJ 2MG/2ML VIAL As Ordered ONE (09:19)
[2023-12-06] MEDS ORDERED: fentaNYL 100 MCG/2 ML INJECTION As Ordered ONE (09:19)
[2023-12-06] MEDS ORDERED: ROCURONIUM BROMIDE 50MG/5ML VIAL As Ordered ONE (09:19)
[2023-12-06 09:35] LABS: INR 1.03; PARTIAL THROMBOPLASTIN TIME 27.5 SECONDS (24.8-34.2); PROTHROMBIN TIME 13.2 SECONDS (12.5-14.5)
[2023-12-06] MEDS: ceFAZolin SOD 2 GM in IV 1 EA IV ONE (10:15)
[2023-12-06] MEDS ORDERED: ACETAMINOPHEN 1000MG 100ML IV BAG As Ordered ONE (10:35)
[2023-12-06] MEDS ORDERED: ONDANSETRON 4MG 2ML VIAL As Ordered ONE (11:18)
[2023-12-06] MEDS ORDERED: SUGAMMADEX SODIUM 500 MG/5 ML VIAL (BRIDION) As Ordered ONE (11:18)
[2023-12-06] MEDS ORDERED: MORPHINE 2 MG/ML 1ML VIAL IV PRN (11:50)
[2023-12-06] MEDS ORDERED: ONDANSETRON 4MG 2ML VIAL IV PRN (11:50)
[2023-12-06] MEDS ORDERED: HYDR-3713 PO (12:00)
[2023-12-06] MEDS: fentaNYL 100 MCG/2 ML INJECTION IV PRN (12:07)
[2023-12-06] MEDS: oxyCODONE 5MG TAB PO PRN (12:19)
[2023-12-06 12:48] VITALS: BP 133/78; TEMP 97.4; O2SAT 99
== END 2023-12-06 12:52 | disposition home or self-care (01) ==
LOC: M SDC 08:09
PROVIDERS: ATTEND Orthopaedic Surgery
DX: S42.024A Nondisplaced fracture of shaft of right clavicle, initial encounter for closed fracture (principal); V86.56XA Driver of dirt bike or motor/cross bike injured in nontraffic accident, initial encounter; Y93.55 Activity, bike riding; Y99.9 Unspecified external cause status; Y92.89 Other specified places as the place of occurrence of the external cause; Z79.01 Long term (current) use of anticoagulants; I73.9 Peripheral vascular disease, unspecified; K21.9 Gastro-esophageal reflux disease without esophagitis; Z86.718 Personal history of other venous thrombosis and embolism; Z79.899 Other long term (current) drug therapy; F17.218 Nicotine dependence, cigarettes, with other nicotine-induced disorders; F12.10 Cannabis abuse, uncomplicated; Z88.5 Allergy status to narcotic agent
CPT/HCPCS: 23515; 36415; 76000; 85610; 85730; C1713; C9290; J0131; J0665; J0690; J2250; J2405; J3010

== ENCOUNTER → 2023-12-18 | Outpatient (CLI) | payer OTHER | LOC: M SOG 07:51 | PROVIDERS: ATTEND Orthopaedic Surgery | DX: S42.001D Fracture of unspecified part of right clavicle, subsequent encounter for fracture with routine healing (principal) ==

== ENCOUNTER → 2024-01-15 | Outpatient (CLI) | payer OTHER | LOC: M SOG 07:55 | PROVIDERS: ATTEND Orthopaedic Surgery | DX: S42.001D Fracture of unspecified part of right clavicle, subsequent encounter for fracture with routine healing (principal); Z47.89 Encounter for other orthopedic aftercare ==

== ENCOUNTER → 2024-07-30 | Outpatient (CLI) | payer OTHER | LOC: M ADAMS 14:21 | PROVIDERS: ATTEND Nurse Practitioner Family | DX: M54.2 Cervicalgia (principal) ==